=== PATIENT | male | born 1945 | race Caucasian/White ===

== ENCOUNTER 2024-12-16 09:29 | Inpatient (IN) | payer MEDICARE, OTHER, SELFPAY ==
[2024-12-12] VITALS (8 sets, daily range): BP systolic 115–158; BP diastolic 72–88; BMI 27.9
[2024-12-12 17:02] LABS: ALT (SGPT) 27 U/L (0-50); AST (SGOT) 58 U/L (17-59); Albumin 3.6 g/dl (3.5-5.0); Alkaline Phosphatase 110 U/L (38-126); Blood Urea Nitrogen 16 mg/dl (9-20); Calcium 8.6 mg/dl (8.4-10.2); Carbon Dioxide 24 mmol/L (22-30); Chloride 106 mmol/L (98-107); Glucose 95 mg/dl (70-99); Potassium 4.4 mmol/L (3.5-5.1); Sodium 135 mmol/L (135-145); Total Protein 7.6 g/dl (6.3-8.2); eGFR > 60.00
[2024-12-12 17:07] LABS: Hematocrit 33.9 % (39.0-52.0); Hemoglobin 11.3 g/dL (13.0-18.0); Mean Corp Hgb Conc. 33.3 g/dL (33.0-37.0); Mean Corpuscular Volume 100.3 fL (80.0-94.0); Platelet Count 124 10^3/uL (130-400); Red Cell Dist. Width 15.7 % (11.5-14.5)
[2024-12-12 17:28] LABS: Nucleated Red Blood Cells % 0 % (-)
--- NOTE | 2024-12-12 17:57 | ED.GENMED ---
History of Present Illness
General
Chief Complaint: Weakness
Source: patient
Exam Limitations: none
Time Seen by Provider: 12/12/24 17:56
History of Present Illness
History of Present Illness:
79-year-old male presents feeling unwell. He is having loose stools over the past week. He has the urge to have bowel movement and only drops come out. He denies significant abdominal pain. He is very fatigued. Took a COVID test at home which
was negative. He denies any blood in his stool. No vomiting. He was on a trip to [facility] and got home on the fifth of this month. He had been doing well for several days after he returned from the trip no recent antibiotics..
Phy Exam
Physical Exam
Physical Exam:
General: Well-appearing male no acute respiratory distress
HEENT: Normocephalic atraumatic
Heart: Regular rate and rhythm no murmurs
Lungs: Clear no wheeze
Course
Orders/Labs/Results
Orders:
Orders
12/12/24 16:31
Electrocardiogram (*1) Urgent
Reason for Study: Chest Pain
EKG- Treatment ONCE
12/12/24 16:35
Complete Blood Count/With Diff Urgent
Comprehensive Metabolic Panel Urgent
Lipase Urgent
Comment: ADD ON
12/12/24 18:11
Ova & Parasites Giardia/Crypto AG [Giardia/Cryptosporidium Ag] Urgent
TONY Source: Feces/Stool
Specimen Description:
STOOL [C difficile Antigen & Toxins] Urgent
TONY Source: Feces/Stool
Specimen Description:
Stool Culture Urgent
TONY Source: Feces/Stool
Specimen Description:
12/12/24 18:34
CT Abd/pelvis W Iv Cont Urgent
Comment:
Reason For Exam: diarrhea, loss of appetite
12/12/24 21:00
Add On- LAB Urgent
Tests Added?: lipase
Abnormal Lab Results
12/12/24
16:35
WBC 3.6 L 10^3/uL
(4.8-10.8)
RBC 3.38 L 10^6/uL
(4.70-6.10)
Hgb 11.3 L g/dL
(13.0-18.0)
Hct 33.9 L %
(39.0-52.0)
MCV 100.3 H fL
(80.0-94.0)
MCH 33.4 H pg
(27.0-31.0)
RDW 15.7 H %
(11.5-14.5)
Plt Count 124 L 10^3/uL
(130-400)
MPV 10.5 H fL
(7.4-10.4)
Abs Immat Gran (auto) 0.1 H 10^3/uL
(0-0.05)
Absolute Lymphs (auto) 1.0 L 10^3/uL
(1.2-3.4)
Immature Gran % 1.7 H %
(0-0.5)
Monocytes % 14.0 H %
(1.7-9.3)
Total Bilirubin 1.9 H mg/dl
(0.2-1.3)
12/12/24 16:35
12/12/24 16:35
Vital Signs
Initial and Last Documented VS:
Initial Vital Signs
Temp Pulse Resp BP Pulse Ox
98.1 F 70 16 140/83 97
12/12/24 16:26 12/12/24 16:26 12/12/24 16:26 12/12/24 16:26 12/12/24 16:26
Last Documented Vital Signs
Temp Pulse Resp BP Pulse Ox
98.1 F 70 16 140/83 97
12/12/24 16:26 12/12/24 16:26 12/12/24 16:26 12/12/24 16:26 12/12/24 17:57
*Pulse Oximetry
SaO2: 97
Oxygen Mode of Delivery: Room air
Patient hypoxic: no
*Critical Care Note
Total Time (30-74mins, 75-104mins- exclusive of procedures): Not Applicable
Update Note
Update Note:
Patient reexamined still appears nontoxic. Unable to provide a stool sample at this point yet. CT demonstrates moderate amount of new ascites with possible cirrhosis and colopathy versus colitis. Discussed findings with GI. They are recommending
further workup for new ascites with interventional radiology involvement and testing of the fluid. Stool cultures pending. Will hold off on antibiotics as discussed with GI.
ED Attending Note
-
Portions of this chart may have been created with voice recognition software.� Occasional wrong word or��sound alike� substitutions may have occurred due to the inherent limitations of voice recognition software.
Discharge Plan
Departure
Patient Disposition: Admit
Date of Disposition: 12/12/24
Time of Disposition: 21:23
Presentation/result/management discussed w/ accepting MD/DO: Hospitalist
Discharge Problem:
new ascites
Referrals:
Saurav Masters Jr., DO [Family Provider]
Interventions
Interventions:
*Risk Screen - Suicide Last Done: 12/12/24 16:26
*General Assessment Last Done: 12/12/24 18:19
*Neglect/Abuse Screening Last Done: 12/12/24 18:19
*ED- Fall Risk Assessment Last Done: 12/12/24 18:19
*ED COVID-19 Vaccine History Last Done: 12/12/24 18:19
ED- Cardiac Assessment Last Done: 12/12/24 18:19
ED- Neurological Assessment Last Done: 12/12/24 18:19
ED- Pulmonary Assessment Last Done: 12/12/24 18:19
Discharge Date and Time
Print Language: VATICAN CITIZEN
--- NOTE | 2024-12-12 20:20 | PTCARENOTE ---
Pt reported stool sample left in hat as instructed, however unable to obtain sample as pt had left toilet paper covering sample in hat. Reinforced teaching that nothing could go into hat for sample
[2024-12-12 21:31] LABS: Lipase 222 U/L (23-300)
--- NOTE | 2024-12-12 21:53 | HPS.HSE ---
Addendum entered and electronically signed by Johnathon Glasgow DO 12/12/24 22:58:
Patient seen and examined independently. Agree with findings and plan as set forth by DENISE Johns.
Patient is a 79y M with PMH significant for HTN, GERD and BPH who presents to ED complaining of diarrhea x 1 week. Patient reports 3-4 loose bowel movements per day in that time. Mild crampy abdominal pain prior to BM. No N/V. No fevers /
chills. No bloody or black stools. Patient returned from trip to [facility] in early November. No known sick contacts.
He admits to history of daily alcohol use until about 3 months ago. Now has 2-3 drinks on weekends.
Ass:
Diarrhea / Portal Colopathy
Cirrhosis with Ascites
Pancytopenia
Benign Hypertension
GERD
BPH
Anxiety / Depression
Plan:
Admit for further evaluation and treatment.
Cirrhosis with ascites and probable portal colopathy resulting in loose stools.
Check stool studies to rule out infectious etiology.
GI evaluation for additional recommendations.
IR eval for paracentesis / fluid analysis in the AM.
Check hepatitis serologies.
Patient reports prior diagnosis of 'fatty liver' as well as years of daily alcohol use.
Original Note:
Family Physician
-
Family Physician: Saurav Masters DO
Chief Complaint
-
persistent diarrhea
History of Present Illness
Patient is a 79-year-old male with past medical history hypertension, hyperlipidemia, depression, GERD and BPH who presented to [facility] ED for evaluation of persistent diarrhea for 1 week. Patient reports recent 2 week trip to [facility] for [employer]
trip, returning home on the . He states that approximately 10 days ago he started with watery diarrhea, with 2-3 episodes a day. After a few days he reports that it has become more soft/loose diarrhea and in small amounts. He decided to come for
evaluation since the symptoms have not resolved. Patient denies any fever, chills, cough, shortness of breath, chest pain, weight gain, increase in abdominal girth, or urinary changes.
Medical History
Past Medical History
Past Medical History: Reports Other
Additional Past Medical History:
hypertension
hyperlipidemia
depression
GERD
BPH
Past Surgical History: Reports Other
Additional Past Surgical History:
bilateral knee replacements
Social History
Tobacco: Other (smokes 10-12 cigars per year )
Alcohol: Other (was a daily drinker up to 3 months ago, now will drink 1-2 glasses of wine just on weekend nights.)
Drug: None
Personal:
Living: With Family
Employment: Retired
Family History
Family History: Other (Father: [place]; Sister: breast cancer )
Allergies / Home Medications
Allergies reflects when Allergies were last updated in [facility].
Home Medications with original date entered in [facility]
Allergy/Medication List:
Allergies
Allergy/AdvReac Type Severity Reaction Status Date / Time
No Known Allergies Allergy Unverified 12/12/24 16:26
Home Medications
amlodipine 5 mg-benazepril 40 mg capsule 1 cap PO DAILY 12/12/24
aspirin 81 mg tablet,delayed release 81 mg PO DAILY 12/12/24
dutasteride 0.5 mg capsule 0.5 mg PO DAILY 12/12/24
escitalopram oxalate 20 mg tablet 20 mg PO DAILY 12/12/24
fenofibrate 160 mg tablet 160 mg PO DAILY 12/12/24
glucosamine sulf dipot chlr,msm,chond 550 mg-C 30 mg-karmen 1 mg capsule (Glucosamine Chondroitin) 1 cap PO BID 12/12/24
omeprazole 40 mg capsule,delayed release 40 mg PO DAILY 12/12/24
simvastatin 40 mg tablet 40 mg PO HS 12/12/24
therapeutic multivitamin 1 tab PO DAILY 12/12/24
turmeric 400 mg capsule 400 mg PO DAILY 12/12/24
Review of Systems
-
History Source: Patient
Constitutional: Reports No Symptoms
EENT: Reports No Symptoms
Respiratory: Reports No Symptoms
Cardiac: Reports No Symptoms
Abdomen/GI: Reports Diarrhea (for 1 week )
: Reports No Symptoms
Musculoskeletal: Reports No Symptoms
Skin: Reports No Symptoms
Neurological: Reports No Symptoms
Endocrine: Reports No Symptoms
Hematologic/Lymphatic: Reports No Symptoms
Psych: Reports No Symptoms
Physical Exam
Vital Signs
Vital Signs
Temp Pulse Resp BP Pulse Ox
98.1 F 68 19 141/83 95
12/12/24 16:26 12/12/24 21:15 12/12/24 21:15 12/12/24 21:00 12/12/24 21:15
Physical Exam
General: Well Developed, Well Nourished, No Apparent Distress and Obese
HEENT: NormoCephalic, Moist mucous membranes and Atraumatic
Respiratory: Clear and Non Labored Respirations
Cardiac: S1/S2 and Regular Rhythm
GI: Soft, Non Tender, Non Distended and Normal Bowel Sounds
Rectal: Deferred by Provider
Genito-urinary: Deferred by me
Musculoskeletal: No Clubbing, No Cyanosis and No Edema
Skin: Warm and IV/Catheter Site
Neuro: Awake, AO x 3 and Nonfocal/grossly intact
Psych: Calm and Intact Judgment/Insight
Laboratory Results
-
12/12/24 16:35
12/12/24 16:35
Laboratory Results
Total Bilirubin 1.9 mg/dl (0.2-1.3) H 12/12/24 16:35
AST 58 U/L (17-59) 12/12/24 16:35
ALT 27 U/L (0-50) 12/12/24 16:35
Alkaline Phosphatase 110 U/L (38-126) 12/12/24 16:35
Lipase 222 U/L (23-300) 12/12/24 16:35
Data Reviewed
-
CT Scan: Report Reviewed by me (Abd/Pel: 1. Hepatic cirrhosis and splenomegaly suggesting portal hypertension. 2. Moderate volume abdominopelvic ascites. 3. Findings suggesting portal colopathy (versus acute uncomplicated colitis). Otherwise no
convincing acute process in the abdomen or pelvis.)
Medical Tests (Nuc Med, Echo, EKG etc): Report Reviewed by me (EKG: NORMAL SINUS RHYTHM NONSPECIFIC ST ABNORMALITY)
Lab Data: Labs Reviewed by me (Tot Bili 1.9)
Impression/Plan
-
IMPRESSION/PLAN:
#persistent diarrhea
#ascites
Tot Bili 1.9
stool studies: pending
Abd/Pel: 1. Hepatic cirrhosis and splenomegaly suggesting portal hypertension.
2. Moderate volume abdominopelvic ascites.
3. Findings suggesting portal colopathy (versus acute uncomplicated colitis). Otherwise no convincing acute process in the abdomen or pelvis.
EKG: NORMAL SINUS RHYTHM
NONSPECIFIC ST ABNORMALITY
- Admit to med/surg
- Consult GI
- Consult IR
- h epatitis panel
- supportive care
#hypertension
- continue amlodipine-benazepril
#hyperlipidemia
#hypertriglyceridemia
- continue aspirin, fenofibrate and simvastatin
#depression
- continue escitalopram
#GERD
- continue omeprazole
#BPH
- continue dutasteride
Code status: full code
DVT prophylaxis: SCDs
[2024-12-13] VITALS (15 sets, daily range): BP systolic 60–151; BP diastolic 69–89; BMI 27.9
[2024-12-13 04:42] LABS: Hematocrit 30.1 % (39.0-52.0); Hemoglobin 10.3 g/dL (13.0-18.0); Mean Corp Hgb Conc. 34.2 g/dL (33.0-37.0); Mean Corpuscular Volume 100.0 fL (80.0-94.0); Platelet Count 104 10^3/uL (130-400); Red Cell Dist. Width 15.9 % (11.5-14.5)
[2024-12-13 04:53] LABS: Blood Urea Nitrogen 16 mg/dl (9-20); Calcium 8.4 mg/dl (8.4-10.2); Carbon Dioxide 22 mmol/L (22-30); Chloride 111 mmol/L (98-107); Estimated Creatinine Clearance 75 ml/min; Glucose 128 mg/dl (70-99); Potassium 3.6 mmol/L (3.5-5.1); Sodium 138 mmol/L (135-145); eGFR > 60.00
[2024-12-13 05:32] LABS: Hepatitis B Surface Antigen Negative (Negative)
[2024-12-13 05:50] LABS: Hepatitis C Antibody Negative (Negative)
--- NOTE | 2024-12-13 06:44 | CON.GI ---
Addendum entered and electronically signed by Lion Hilliard DO 12/13/24 15:04:
I saw and examined the patient.
The INTEGRATION DEVELOPER's note was reviewed and I agree with the note.
Comment: Mr. Rajan is a 79 y.o male with a past medical history of HTN, HLD, GERD, anxiety/depression and recent travel to [place] who presented to the ED with acute, non-bloody, watery diarrhea over the past 2-3 weeks and found to have CT imaging
demonstrating hepatic cirrhosis and ascites for which GI has been consulted. Patient denies any known liver disease or prior history of cirrhosis in the past. Denies any family history of liver disease. He does note significant EtOH use in the past
several years ago, primarily drank 1-2 glasses of wine on a daily basis and continues to drink EtOH about 4-5 drinks per week. Found to have labs demonstrating synthetic dysfunction along with pancytopenia and thrombocytopenia. MELD labs
corresponding to a MELD 10. CT imaging demonstrating hepatic cirrhosis and splenomegaly suggesting portal HTN along with moderate abdominopelvic ascites along with portal colopathy (versus acute uncomplicated colitis). Otherwise, no other acute
process. S/p IR-guided paracentesis on 12/13 with (-) 1.3 L removed and (-) for SBP (27 PMNs) along with High SAAG > 1.1, low protein further consistent with portal HTN secondary to cirrhosis. For now, would still obtain infectious stool studies with
stool culture, stool ova and parasites along with C Diff. Doubt his diarrhea related to portal colopathy as often found incidentally on imaging and often an asymptomatic finding as related to passive-congestion. Would send full serologic w/u to r/o
chronic liver disease as well but seems most consistent with underlying EtOH. Would benefit from an eventual EGD and colonoscopy as well but would consider deferring to outpatient setting. Favor starting low dose diuretics given his ascites with
close monitoring of his renal function along. Would also ensure his peritoneal fluid has also been sent for cytology. Would continue to trend serial MELD 3.0 labs while inpatient along with minimizing opioids/benzos as not to precipitate HE.
Discussed strict abstinence of alcohol and will need close follow-up with Hepatology as outpatient. See rest of care as outlined below.
GI will continue to follow while inpatient. Please call with any questions or concerns.
Original Note:
Consultation
-
Date/Time Consultation Requested: 12/12/24 3051
Date/Time Consultation Performed: 12/13/24 2030
Requesting Provider: DENISE Johns
Performing Provider: DENISE Berumen, Lion Hilliard DO
Reason for Consultation: ascites
Medical History
Chief Complaint / HPI
Chief Complaint: diarrhea
History of Present Illness:
Pt is a 79yo with hx GERD, HTN, hyperlipidemia, anxiety/depression, BPH with recent trip to [facility] with return in early November. He now presents with onset of watery stool for last few weeks. On admission noted with WBC 3.6, hbg 11,3 platelets 124,
bili 1.9 wih otherwise stable chemistry. CT on admission with concern for cirrhosis with splenomegaly, moderate ascites and portocolopathy.
In review with patient he denies hx hepatitis, known liver disease and drinks ETOH about 4-5 drinks per week. He denies hx lab abnormalities with last labs in May. He denies dysphagia, GERD, nausea, vomiting, abdominal pain, constipation
or rectal bleeding. No NSAID or AC use.
Past Medical History
Past Medical History: GERD, HTN, Hypercholesterolemia, Psychiatric (anxiety/depression) and Other (BPH)
Past Surgical History: Orthopedic (b/l TKR)
Social History
Tobacco: Non-Smoker
Alcohol: Occasional (4-5 drinks per week)
Drug: None
Personal:
Living: With Family
Employment: Retired
Family History
Family History: Other (no family hx GI issues )
Allergies / Home Medications
Allergy/AdvReac Type Severity Reaction Status Date / Time
No Known Allergies Allergy Unverified 12/12/24 16:26
�Medication �Instructions �Recorded
amlodipine 5 mg-benazepril 40 mg 1 cap PO DAILY 12/12/24
capsule
aspirin 81 mg tablet,delayed 81 mg PO DAILY 12/12/24
release
dutasteride 0.5 mg capsule 0.5 mg PO DAILY 12/12/24
escitalopram oxalate 20 mg tablet 20 mg PO DAILY 12/12/24
fenofibrate 160 mg tablet 160 mg PO DAILY 12/12/24
glucosamine sulf dipot 1 cap PO BID 12/12/24
chlr,msm,chond 550 mg-C 30 mg-karmen
1 mg capsule (Glucosamine
Chondroitin)
omeprazole 40 mg capsule,delayed 40 mg PO DAILY 12/12/24
release
simvastatin 40 mg tablet 40 mg PO HS 12/12/24
therapeutic multivitamin 1 tab PO DAILY 12/12/24
turmeric 400 mg capsule 400 mg PO DAILY 12/12/24
Review of Systems
-
History Source: Patient
Constitutional: Reports No Symptoms
EENT: Reports No Symptoms
Respiratory: Reports No Symptoms
Cardiac: Reports No Symptoms
Abdomen/GI: Reports Diarrhea
: Reports No Symptoms
Musculoskeletal: Reports No Symptoms
Skin: Reports No Symptoms
Neurological: Reports Weakness
Endocrine: Reports No Symptoms
Hematologic/Lymphatic: Reports No Symptoms
Vital Signs
Temp Pulse Resp BP Pulse Ox
98.1 F 77 20 139/85 93
12/12/24 23:51 12/13/24 04:25 12/13/24 04:25 12/13/24 04:25 12/13/24 04:25
Physical Exam
Exam
General: Well Developed, Well Nourished and No Apparent Distress
HEENT: Normocephalic and Anicteric
Respiratory: Clear
Cardiac: Regular Rhythm
GI: Soft, Non Tender and Non Distended
Musculoskeletal: No Clubbing and No Cyanosis
Skin: Warm and Dry
Neuro: Awake, Alert and AO x 3
Psych: Calm
Results
WBC 3.6 10^3/uL (4.8-10.8) L 12/13/24 04:30
Hgb 10.3 g/dL (13.0-18.0) L 12/13/24 04:30
Hct 30.1 % (39.0-52.0) L 12/13/24 04:30
MCV 100.0 fL (80.0-94.0) H 12/13/24 04:30
Plt Count 104 10^3/uL (130-400) L 12/13/24 04:30
Absolute Neuts (auto) 1.9 10^3/uL (1.4-6.5) 12/12/24 16:35
Sodium 138 mmol/L (135-145) 12/13/24 04:30
Potassium 3.6 mmol/L (3.5-5.1) 12/13/24 04:30
Chloride 111 mmol/L (98-107) H 12/13/24 04:30
Carbon Dioxide 22 mmol/L (22-30) 12/13/24 04:30
BUN 16 mg/dl (9-20) 12/13/24 04:30
Creatinine 0.8 mg/dL (0.7-1.3) 12/13/24 04:30
Calcium 8.4 mg/dl (8.4-10.2) 12/13/24 04:30
Total Bilirubin 1.9 mg/dl (0.2-1.3) H 12/12/24 16:35
AST 58 U/L (17-59) 12/12/24 16:35
ALT 27 U/L (0-50) 12/12/24 16:35
Alkaline Phosphatase 110 U/L (38-126) 12/12/24 16:35
Lipase 222 U/L (23-300) 12/12/24 16:35
Hepatitis A IgM Ab Negative (Negative) 12/13/24 04:30
Hep Bs Antibody Positive 12/13/24 04:30
Hep B Core IgM Ab Negative (Negative) 07/25/25 04:30
Hepatitis C Antibody Negative (Negative) 12/13/24 04:30
Diagnostic Image Results:
12/12/24 CT Abd/pelvis W Iv Cont
1. Hepatic cirrhosis and splenomegaly suggesting portal hypertension.
2. Moderate volume abdominopelvic ascites.
3. Findings suggesting portal colopathy (versus acute uncomplicated colitis). Otherwise no convincing acute process in the abdomen or pelvis.
Prior GI Procedures:
EGD: ? [facility] recalls normal
Colonoscopy: [facility] 7-8 years ago recall normal
Assessment / Plan
-
Pt is a 79yo with hx GERD, HTN, hyperlipidemia, anxiety/depression, BPH with recent trip to [facility] with return in early November. He now presents with onset of watery stool for last few weeks. On admission noted with WBC 3.6, hbg 11,3 platelets 124,
bili 1.9 wih otherwise stable chemistry. CT on admission with concern for cirrhosis with splenomegaly, moderate ascites and portocolopathy.
-diarrhea
-new onset ascites
-CT concern for hepatic cirrhosis with splenomegaly and portocolopathy
-thrombocytopenia
-mild macrocytic anemia
-social ETOH use
other med problems:
-GERD
-HTN
-hyperlipidemia
-anxiety/depression
-BPH
PLAN:
etiology of diarrhea related to infectious process with recent travel, colopathy vs other
no prior GI bleeding, HE or Cirrhosis known in past
agree with stool studies
with new ascites agree with para and fluid analysis to rule out SBP, calculate SAAG for origin, and cytology
pending labs may need low dose diuretics
hepatitis with prior B immunity otherwise neg , add MIKE, AMA and iron studies
will need OP follow up for further serology testing and work up
eventual EGD for variceal screening
add INR to calculate meld
add low lactose to diet with diarrhea
ETOH abstience
will follow
-
-
Thank you for consultation and allowing me to participate in the patient's care. Please call the configuration management consultant GI physician during the after hours with any questions or concerns.
[2024-12-13] MEDS: PROSCAR 5 MG PO (08:50)
[2024-12-13] MEDS: ASPIR LOW (ENTERIC COATED) 81 MG PO (08:50)
[2024-12-13] MEDS: NORVASC 5 MG PO (08:50)
[2024-12-13] MEDS: PROTONIX 40 MG PO (08:50)
[2024-12-13] MEDS: LEXAPRO 20 MG PO (08:50)
[2024-12-13 09:03] LABS: INR 1.32; PT 16.7 Sec (11.4-14.6)
[2024-12-13 09:35] LABS: Folate 10.3 ng/ml (2.76-20); Vitamin B12 389 pg/ml (239-931)
[2024-12-13] MEDS: TRICOR 145 MG PO (10:08)
[2024-12-13 10:28] LABS: Body Fluid Second Tech EM
--- NOTE | 2024-12-13 11:08 | W.PN.HOSP.TC ---
Today's Communication/Plan
-
See PN
Assessment / Plan
Assessment / Plan
79yo M with PMHX of HLD, BPH, HTN, CAD, GERD came with concerns for weakness and appetite loss over past 3 weeks after his return from [facility] with abdominal distension. Found new moderate ascites s/p paracenthesis on 12/13/24 with transudate with low
protein content - most likely 2/2 portal HTN due to liver disease. CT showed cirrhotic liver morphology with portal HTN resulting in splenomegally and portal colopathy. Did not meet criteria for SBP. ALso developed loose multiple stools over past 3
weeks. Patient previously used to have wine nightly, but denies abuse
A/P:
#Malaise, weakness
Most likely 2/2 systemic disease
#Diarrhea
can be 2/2 portal colopathy
C.diff neg
follow stool Cx
#Liver cirrhosis with ascites
Check ferritin, ceruloplasmin, IGG4, MIKE, AMA, Anti-Smooth muscle Ab, lead level and follow with GI
Acute Hepatitis neg, patient immunized to HepB
Advised absolute alcohol abstinence, avoid Tylenol
Eventual EGD for variceal screening, recommend colonoscopy due to stool consistency change, diuretics.
Lactulose PRN to ensure daily BM
#Pancytopenia
Thiamine, folate WNL
Hematology consult
#GERD
#Essential HTN
#HLD
#CAD stable
#BPH
cont home meds
DVT ppx SCDs
Full code
I have spent at least 51min reviewing chart, test results, communication with consultants, family and providing direct patient care
Anticipated Discharge: 24 - 48 hours
Subjective/Interval History
-
Date of Service: December 13, 2024
Objective Data
-
Labs:
Laboratory Results
12/13/24 12/13/24
04:30 08:47
WBC 3.6 L
Hgb 10.3 L
Hct 30.1 L
Plt Count 104 L
PT 16.7 H
INR 1.32
Sodium 138
Potassium 3.6
Chloride 111 H
Carbon Dioxide 22
BUN 16
Creatinine 0.8
Glucose 128 H
Calcium 8.4
Vital Signs:
Vital Signs
Temp Pulse Resp BP Pulse Ox
98.1 F 62 14 141/82 94
12/13/24 10:56 12/13/24 09:58 12/13/24 09:58 12/13/24 09:58 12/13/24 09:49
Review of Systems
-
History Source: Patient
All other systems: Reviewed and negative
Physical Exam
-
General: No Apparent Distress
HEENT: Normocephalic
Respiratory: Clear to Auscultation
Cardiac: Regular Rhythm
GI: Soft, Nontender, Normal Bowel Sounds and Distended
Musculoskeletal: No Clubbing, No Cyanosis and No Edema
Neuro: Awake, Alert, Oriented and AO x 3
Psych: Calm
--- NOTE | 2024-12-13 11:14 | CM ---
Patient seen at bedside in ED with patient present. Patient and stated that they live in a 2 story home with no DME at home or past needs for VN. Patient PCP is Dr. Masters and they use the [facility] in [place]. 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 Patient and reviewed OBS/BOX form with CM. Patient stated that she did not feel the status was fair and wanted it to be changed. CM reviewed process and patient did not feel comfortable completing the OBS/BOX form. CM documented
this on the form and provided the original form to the patient and , CM requested air conditioning unit tester to scan OBS/BOX form in to record. CM will continue to follow for discharge planning needs
Plan; home with ; watch for VN needs.
[2024-12-13 14:25] LABS: ALT (SGPT) 25 U/L (0-50); AST (SGOT) 52 U/L (17-59); Albumin 3.4 g/dl (3.5-5.0); Alkaline Phosphatase 121 U/L (38-126); Total Protein 7.0 g/dl (6.3-8.2)
[2024-12-13 15:22] LABS: Ferritin 206.0 ng/ml (17.9-464.0)
--- NOTE | 2024-12-13 15:26 | CON.ONC ---
Consultation
-
Date Consultation Requested: 12/13/24
Date Consultation Performed: 12/13/24
Requesting Provider: kody del castillo
Performing Provider: evie serrano
Reason for Consultation: pancytopenia
Impression
Impression
- Mild thormbocytopenia
- mild macrocytic anemia
- mild leukopenia
portal HTN with splenomegaly
Cirrhosis, decompensated
Plan
Plan
- pt presenting with newly diagnosed cirrhosis with evidence of portal HTN with ascites, splenomegaly. Pt with risk factors for fatty liver, chronic moderate ETOH use.
- no prior labs for comparison. CBC with mild leukopenia, anemia, thrombocytopenia. B12, folate normal. TSH pending.
- suspect cytopenias due to splenic sequestration. low suspicion for primary bone marrow process. denies melena, BRBPR. iron studies pending. If evidence of iron deficiency recommend stool hemoccult, EGD to assess for varices. Otherwise
EGD/colonoscopy outpt per GI recs to document varices.
- I do not feel BMbx is warranted with current values and other etiology present.
- monitor CBC daily.
Patient History
History of Present Illness
Patient is a 79-year-old male with past medical history hypertension, hyperlipidemia, depression, GERD and BPH who presented to [facility] ED for evaluation of change in bowels with constipation then intermittent loose stools. He also noted increased
abdominal distention. CT imaging showed hepatic cirrhosis and ascites for which GI has been consulted. Patient denies any known liver disease however notes he has been told LFTs slightly high in past but were stable so no further work-up
pursued. Denies any family history of liver disease. He does note significant EtOH use in the past several years ago, primarily drank 1-2 glasses of wine on a daily basis and continues to drink EtOH about 4-5 drinks per week. Found to have labs
demonstrating synthetic dysfunction along with pancytopenia with WBC 3.6, hgb 11.3, plts 124K. Ct also showed splenomegaly measuring 17.5 cm suggesting portal HTN along with moderate abdominopelvic ascites along with portal colopathy (versus acute
uncomplicated colitis). Otherwise, no other acute process. S/p IR-guided paracentesis on 12/13 with (-) 1.3 L removed and (-) for SBP (27 PMNs) along with High SAAG > 1.1, low protein further consistent with portal HTN secondary to cirrhosis.
Patient Medication
�Medication �Instructions �Recorded �Confirmed �Last Taken �Type
amlodipine 5 mg-benazepril 40 mg 1 cap PO DAILY Blood Pressure 12/12/24 12/12/24 12/12/24 History
capsule
aspirin 81 mg tablet,delayed 81 mg PO DAILY Blood Clot 12/12/24 12/12/24 12/12/24 History
release Prevention/Tx
dutasteride 0.5 mg capsule 0.5 mg PO DAILY prostate issues 12/12/24 12/12/24 12/12/24 History
escitalopram oxalate 20 mg tablet 20 mg PO DAILY Mental Health 12/12/24 12/12/24 12/12/24 History
fenofibrate 160 mg tablet 160 mg PO DAILY High Cholesterol 12/12/24 12/12/24 12/12/24 History
glucosamine sulf dipot 1 cap PO BID Supplement 12/12/24 12/12/24 12/12/24 History
chlr,msm,chond 550 mg-C 30 mg-karmen
1 mg capsule (Glucosamine
Chondroitin)
omeprazole 40 mg capsule,delayed 40 mg PO DAILY Gastrointestinal 12/12/24 12/12/24 12/12/24 History
release Issue
simvastatin 40 mg tablet 40 mg PO HS High Cholesterol 12/12/24 12/12/24 12/11/24 History
therapeutic multivitamin 1 tab PO DAILY Supplement 12/12/24 12/12/24 12/12/24 History
turmeric 400 mg capsule 400 mg PO DAILY Supplement 12/12/24 12/12/24 12/12/24 History
Active Medications
Generic Name Dose Route Start Last Admin
Trade Name Freq PRN Reason Stop Dose Admin
Amlodipine Besylate 5 mg 12/13/24 08:00 12/13/24 08:50
Amlodipine 5 Mg Tablet PO 01/10/25 07:59 5 mg
DAILY SIRIA Administration
Aspirin 81 mg 12/13/24 08:00 12/13/24 08:50
Aspirin 81 Mg (Enteric Coated) Tablet PO 01/10/25 07:59 81 mg
DAILY SIRIA Administration
Atorvastatin Calcium 20 mg 12/13/24 22:00
Atorvastatin (Lipitor) 20 Mg Tablet PO 01/10/25 21:59
HS SIRIA
Escitalopram Oxalate 20 mg 12/13/24 08:00 12/13/24 08:50
Escitalopram 20 Mg Tablet PO 01/10/25 07:59 20 mg
DAILY SIRIA Administration
Fenofibrate 145 mg 12/13/24 08:00 12/13/24 10:08
Fenofibrate 145 Mg Tablet PO 01/10/25 07:59 145 mg
DAILY SIRIA Administration
Finasteride 5 mg 12/13/24 08:00 12/13/24 08:50
Finasteride 5 Mg Tablet PO 01/10/25 07:59 5 mg
DAILY SIRIA Administration
Pantoprazole Sodium 40 mg 12/13/24 08:00 12/13/24 08:50
Pantoprazole 40 Mg Delayed Release Tablet PO 01/10/25 07:59 40 mg
DAILY SIRIA Administration
Sodium Chloride 0 flush 12/12/24 23:00
Sodium Chloride 0.9% (Flush) Syringe IV 01/09/25 22:59
PER PROTOCOL SIRIA
Review of Systems
-
History Source: Patient
Constitutional: Reports Fatigue; Denies Fever or Weight Loss
Respiratory: Denies Cough or Trouble Breathing
Cardiac: Denies Chest Pain
GI: Reports Diarrhea, Constipated and Bloated; Denies Abdominal Pain, Nausea, Bloody Stools, Black Stools, Anorexia, Hemetemesis or Indigestion
Musculoskeletal: Denies Joint Pain
Neuro: Denies Dizzy or Headache
Physical Exam
-
General: Well Developed, Well Nourished and No Apparent Distress
HEENT: Negative Jaundice
Cardiology: Normal Sinus Rhythm
Pulmonary: Clear
GI: Soft, Normal Bowel Sounds and Distended
Musculoskeletal: No Cyanosis and No Edema
Extremities: Negative Edema
Neurology: Non Focal and No Lateralizing Symptoms
Hematologic / Lymphatic: No Lymphadenopathy and No Petechiae
Labs
Lab Results
WBC 3.6 10^3/uL (4.8-10.8) L 12/13/24 04:30
RBC 3.01 10^6/uL (4.70-6.10) L 12/13/24 04:30
Hgb 10.3 g/dL (13.0-18.0) L 12/13/24 04:30
Hct 30.1 % (39.0-52.0) L 12/13/24 04:30
MCV 100.0 fL (80.0-94.0) H 12/13/24 04:30
MCH 34.2 pg (27.0-31.0) H 12/13/24 04:30
MCHC 34.2 g/dL (33.0-37.0) 12/13/24 04:30
RDW 15.9 % (11.5-14.5) H 12/13/24 04:30
Plt Count 104 10^3/uL (130-400) L 12/13/24 04:30
MPV 10.2 fL (7.4-10.4) 12/13/24 04:30
Abs Immat Gran (auto) 0.1 10^3/uL (0-0.05) H 12/12/24 16:35
Absolute Neuts (auto) 1.9 10^3/uL (1.4-6.5) 12/12/24 16:35
Absolute Lymphs (auto) 1.0 10^3/uL (1.2-3.4) L 12/12/24 16:35
Absolute Monos (auto) 0.5 10^3/uL (0.1-0.6) 12/12/24 16:35
Absolute Eos (auto) 0.1 10^3/uL (0-0.7) 12/12/24 16:35
Absolute Basos (auto) 0.1 10^3/uL (0-0.2) 12/12/24 16:35
Immature Gran % 1.7 % (0-0.5) H 12/12/24 16:35
Neutrophils % 53.8 % (42.2-75.2) 12/12/24 16:35
Lymphocytes % 26.6 % (20.5-51.1) 12/12/24 16:35
Monocytes % 14.0 % (1.7-9.3) H 12/12/24 16:35
Eosinophils % 2.5 % (0-6) 12/12/24 16:35
Basophils % 1.4 % (0-2) 12/12/24 16:35
Creatinine 0.8 mg/dL (0.7-1.3) 12/13/24 04:30
Vital Signs
Vital Signs
Temp Pulse Resp BP Pulse Ox
98.1 F 77 22 124/73 96
12/13/24 10:56 12/13/24 13:30 12/13/24 13:30 12/13/24 13:00 12/13/24 13:55
[2024-12-13] MEDS: LIPITOR 20 MG PO (20:18)
[2024-12-14 06:00] VITALS: BMI 25.4
--- NOTE | 2024-12-14 06:17 | W.PN.GI.CBS2 ---
Today's Communication / Plan
-
Await rest of stool cultures, previous looser stools now resolved. Start low-dose diuretics along with obtaining Abdominal US with Dopplers to r/o HCC and PVT. Will obtain AFP as well along awaiting full serologic w/u of chronic liver disease. No
plans for EGD/Colon while inpatient, can be deferred to outpatient setting. See rest of care as outlined below. GI will continue to follow.
Assessment / Plan
-
#Decompensated Cirrhosis (likely 2/2 EtOH)
#High SAAG, low protein Ascites
#Colonic Wall Thickening c/f #Portal Colopathy
#Previous Non-bloody, Watery Diarrhea- Resolved
#Pancytopenia #Macrocytic Anemia
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
Mr. Rajan is a 79 y.o male with a past medical history of HTN, HLD, GERD, anxiety/depression and recent travel to [facility] who presented to the ED with acute, non-bloody, watery diarrhea over the past 2-3 weeks and found to have CT imaging
demonstrating hepatic cirrhosis and ascites for which GI has been consulted. Patient denies any known liver disease or prior history of cirrhosis in the past. Denies any family history of liver disease. He does note significant EtOH use in the past
several years ago, primarily drank 1-2 glasses of wine on a daily basis and continues to drink EtOH about 4-5 drinks per week. Found to have labs demonstrating synthetic dysfunction along with pancytopenia and thrombocytopenia. MELD labs
corresponding to a MELD 10. CT imaging demonstrating hepatic cirrhosis and splenomegaly suggesting portal HTN along with moderate abdominopelvic ascites along with portal colopathy (versus acute uncomplicated colitis). Otherwise, no other acute
process. S/p IR-guided paracentesis on 12/13 with (-) 1.3 L removed and (-) for SBP (27 PMNs) along with High SAAG > 1.1, low protein further consistent with portal HTN secondary to cirrhosis. For now, would still obtain infectious stool studies with
stool culture, stool ova and parasites along with C Diff. Doubt his diarrhea related to portal colopathy as often found incidentally on imaging and often an asymptomatic finding as related to passive-congestion. Would send full serologic w/u to r/o
chronic liver disease as well but seems most consistent with underlying EtOH. Would benefit from an eventual EGD and colonoscopy as well but would consider deferring to outpatient setting.
- S/p IR-guided paracentesis on 12/13 with (-) 1.3 L removed and (-) for SBP (27 PMNs) along with High SAAG > 1.1, low protein further consistent with portal HTN
- Stool studies: (-) C Diff, (-) Cryptosporidium/Giardia, pending stool culture and peritoneal fluid culture
-
Recommendations:
- Continue diet as tolerated
- Trend daily MELD labs- CMP, INR and CBC
- Hepatitis serologies (-), (+) HBsAb c/w immunity to HBV ; serologic liver w/u sent and pending
- Start low dose diuretics with lasix 20 mg and spirnolactone 50 mg once daily for his ascites
- Await peritoneal culture and cytology, previously (-) SBP as well as stool culture
- Favor monitoring for 24 hrs for close monitoring of renal function and can be uptitrated as an outpatient
- Will obtain an Abdominal US along with Dopplers to ensure no PVT given his ascites although CT with grossly patent vasculature
- No plans for a colonoscopy at this time given his resolved looser stools
- Anemia w/u without evidence of NEVIN with normal ferritin 198 and iron sat 23%
- Favor pursuing an eventual EGD and Colonoscopy in outpatient setting for both EV screening and CRC screening as without any GI bleeding
- No evidence of HE, would continue to monitor off lactulose or rifaximin
- Will need ongoing HCC surveillance with US every 6 months, will obtain AFP
- Hematology consulted, appreciate recs regarding his pancytopenia
- Advised strict EtOH cessation as outpatient
- Ultimately, discussed close follow-up with both GI along with Hepatology as well for outpatient. Will have patient f/u with Dr. Gibbs
- Rest of care as per primary team
GI will continue to follow. Please call with any questions or concerns.
Subjective
Subjective
Date of Service: December 14, 2024
- S/p IR-guided paracentesis on 12/13 with (-) 1.3 L removed and (-) for SBP (27 PMNs) along with High SAAG > 1.1, low protein further consistent with portal HTN
- Stool studies: (-) C Diff, (-) Cryptosporidium/Giardia, pending stool culture and peritoneal fluid culture
- Hepatitis serologies (-), (+) HBsAb ; serologic liver w/u sent and pending
- Otherwise, no acute events overnight and pending AM labs
Feeling better this AM, denies any further diarrhea or looser stools. No recent BM last evening or this AM. No other abdominal pain, nausea/vomiting or other discomfort. Denies any other fevers/chills or other constitutional symptoms.
Objective
Data Reviewed
Laboratory Data:
Laboratory Results
12/13/24 04:30
12/13/24 04:30
Laboratory Results
PT 16.7 Sec (11.4-14.6) H 12/13/24 08:47
INR 1.32 12/13/24 08:47
Total Bilirubin 1.2 mg/dl (0.2-1.3) 12/13/24 04:30
AST 52 U/L (17-59) 12/13/24 04:30
ALT 25 U/L (0-50) 12/13/24 04:30
Alkaline Phosphatase 121 U/L (38-126) 12/13/24 04:30
Lipase 222 U/L (23-300) 12/12/24 16:35
Vital Signs and I&O:
Vital Signs
Temp Pulse Resp BP Pulse Ox
98.3 F 77 20 126/69 93
12/13/24 23:15 12/13/24 23:15 12/13/24 23:15 12/13/24 23:15 07/25/25 23:15
Physical Exam
Physical Exam
HEENT: Anicteric and Moist mucous membranes
Pulmonary: Other (Normal WOB on room air)
GI: Soft, Distended (Mildly distended), Non Tender and Other (No appreciable ascites or fluid wave)
Extremities: No Edema
Neuro: Non Focal and Other (No asterixis)
[2024-12-14 06:55] LABS: Iron 65 ug/dl (49-181)
[2024-12-14 07:05] LABS: Total Iron Binding Capacity 280 ug/dl (261-462)
[2024-12-14 07:30] VITALS: BP 130/81
[2024-12-14 07:32] LABS: Ferritin 198.0 ng/ml (17.9-464.0)
--- NOTE | 2024-12-14 09:30 | PTCARENOTE ---
Patient's spouse and daughter are in patient's room. Spouse is asking for an update. The patient, spouse and daughter were updated with the plan of care. The spouse had concerns regarding the doctors appointments she will need to make at discharge.
This RN explained multiple times to spouse and daughter that physician name, address, phone number and when to follow up will be listed on the discharge instructions. While RN was in patient room the daughter was calling the patients PCP to schedule
a colonoscopy and lab work per instructions. RN interrupted phone call and expressed to daughter that no physician had recommended those tests as of yet. daughter replied, 'Who can we talk to to expedite these discharge instructions.' Family was
made aware discharge instructions will be available on day of discharge. The daughter rolled her eyes at me. RN explained that GI doctor has not rounded yet this am. Daughter becoming angry and states, 'He was already here this morning!' I explained
for the 4th time that the hospitalist was here. She again said, 'No, it was the regional truck driver.' RN explained that was the hospitalist. The daughter then started arguing with her mother at the bedside. RN excused yourself.
[2024-12-14] MEDS: ASPIR LOW (ENTERIC COATED) 81 MG PO (09:34)
[2024-12-14] MEDS: PROTONIX 40 MG PO (09:34)
[2024-12-14] MEDS: NORVASC 5 MG PO (09:34)
[2024-12-14] MEDS: LEXAPRO 20 MG PO (09:34)
[2024-12-14] MEDS: PROSCAR 5 MG PO (09:37)
[2024-12-14 10:12] LABS: Hematocrit 32.3 % (39.0-52.0); Hemoglobin 10.8 g/dL (13.0-18.0); Mean Corp Hgb Conc. 33.4 g/dL (33.0-37.0); Mean Corpuscular Volume 101.9 fL (80.0-94.0); Nucleated Red Blood Cells % 0 % (-); Platelet Count 118 10^3/uL (130-400); Red Cell Dist. Width 15.9 % (11.5-14.5)
--- NOTE | 2024-12-14 10:58 | W.PN.HOSP.TC ---
Today's Communication/Plan
-
pendign stool Cx
Abd US doppler
recheck BMP in AM with new diuretic, possible d/c in AM
Assessment / Plan
Assessment / Plan
79yo M with PMHX of HLD, BPH, HTN, CAD, GERD came with concerns for weakness and appetite loss over past 3 weeks after his return from [facility] with abdominal distension. Found new moderate ascites s/p paracentesis on 12/13/24 with transudate with low
protein content - most likely 2/2 portal HTN due to liver disease. CT showed cirrhotic liver morphology with portal HTN resulting in splenomegaly and portal colopathy. Did not meet criteria for SBP. ALso developed loose multiple stools over past 3
weeks. Patient previously used to have wine nightly, but denies abuse. Pending final stool Cx. Will need f/u with case packer Dr. Gibbs. BMP and CBC in 1 week upon d/c as pancytopenia and new diuretics on discharge. [employer]: cytopenia 2/2
splenic equestration
A/P:
#Malaise, weakness
Most likely 2/2 systemic disease
#Diarrhea
resolving
C.diff neg
follow stool Cx
#Liver cirrhosis with ascites
ferritin 198 - WNL
Sent ceruloplasmin, IGG4, MIKE, AMA, Anti-Smooth muscle Ab, lead level and follow with GI
Acute Hepatitis neg, patient immunized to HepB
Advised absolute alcohol abstinence, avoid Tylenol
Eventual EGD for variceal screening, recommend colonoscopy due to stool consistency change - as outpatient as per GI
Lactulose PRN to ensure daily BM
Abdominal US with Doppler to r/o HCC and PVT as per GI
Started diuretics - will need BMP in 1 week
#Pancytopenia
Thiamine, folate WNL
Hematology consult: suspect cytopenias due to splenic sequestration. no need for bone marrow biopsy at this time
follow CBC -repeat also in 1 week upon d/c
TSH WNL
#GERD
#Essential HTN
#HLD
#CAD stable
#BPH
cont home meds
DVT ppx SCDs
Full code
I have spent at least 51min reviewing chart, test results, communication with consultants and providing direct patient care
Anticipated Discharge: 24 - 48 hours
Subjective/Interval History
-
Date of Service: December 14, 2024
Objective Data
-
Labs:
Laboratory Results
12/14/24 12/14/24 12/14/24
05:59 05:59 05:59
WBC 3.4 L
Hgb 10.8 L
Hct 32.3 L
Plt Count 118 L
Sodium Pending Cancelled
Potassium Pending Cancelled
Chloride Pending
Carbon Dioxide
BUN
Creatinine
Glucose
Calcium
Total Bilirubin
AST
ALT
Alkaline Phosphatase
12/14/24 12/14/24 12/14/24
05:59 05:59 05:59
WBC
Hgb
Hct
Plt Count
Sodium
Potassium
Chloride Cancelled
Carbon Dioxide Pending Cancelled
BUN Pending Cancelled
Creatinine Pending
Glucose
Calcium
Total Bilirubin
AST
ALT
Alkaline Phosphatase
12/14/24 12/14/24 12/14/24
05:59 05:59 05:59
WBC
Hgb
Hct
Plt Count
Sodium
Potassium
Chloride
Carbon Dioxide
BUN
Creatinine Cancelled
Glucose Pending Cancelled
Calcium Pending Cancelled
Total Bilirubin Pending
AST
ALT
Alkaline Phosphatase
12/14/24 12/14/24 12/14/24
05:59 05:59 05:59
WBC
Hgb
Hct
Plt Count
Sodium
Potassium
Chloride
Carbon Dioxide
BUN
Creatinine
Glucose
Calcium
Total Bilirubin Cancelled
AST Pending Cancelled
ALT Pending Cancelled
Alkaline Phosphatase Pending
12/14/24
05:59
WBC
Hgb
Hct
Plt Count
Sodium
Potassium
Chloride
Carbon Dioxide
BUN
Creatinine
Glucose
Calcium
Total Bilirubin
AST
ALT
Alkaline Phosphatase Cancelled
Vital Signs:
Vital Signs
Temp Pulse Resp BP Pulse Ox
98.3 F 61 16 130/81 94
12/14/24 07:30 12/14/24 07:30 12/14/24 07:30 12/14/24 07:30 12/14/24 07:30
I&O
12/13/24 12/14/24 12/15/24
06:59 06:59 06:59
Intake Total 480 / 480
Balance 480 / 480
Review of Systems
-
History Source: Patient
All other systems: Reviewed and negative
Physical Exam
-
General: No Apparent Distress
HEENT: Normocephalic
Respiratory: Clear to Auscultation
GI: Soft, Nontender and Distended
Skin: Warm
Neuro: Awake, Alert, Oriented and AO x 3
Psych: Calm
[2024-12-14 12:14] LABS: ALT (SGPT) 22 U/L (0-50); AST (SGOT) 46 U/L (17-59); Albumin 3.0 g/dl (3.5-5.0); Alkaline Phosphatase 108 U/L (38-126); Blood Urea Nitrogen 18 mg/dl (9-20); Calcium 8.9 mg/dl (8.4-10.2); Carbon Dioxide 23 mmol/L (22-30); Chloride 110 mmol/L (98-107); Estimated Creatinine Clearance 75 ml/min; Glucose 96 mg/dl (70-99); Potassium 4.1 mmol/L (3.5-5.1); Sodium 137 mmol/L (135-145); Total Protein 6.7 g/dl (6.3-8.2); eGFR > 60.00
[2024-12-14] MEDS: LASIX 20 MG PO (12:23)
[2024-12-14] MEDS: ALDACTONE 50 MG PO (12:23)
[2024-12-14] MEDS: TRICOR 145 MG PO (12:23)
[2024-12-14 15:00] VITALS: BP 113/63
--- NOTE | 2024-12-14 15:41 | PTCARENOTE ---
Patient had two bowel movements with a small amount of dark red blood, heme +. Physicians made aware. No new orders, observe for now.
[2024-12-14] MEDS: LIPITOR 20 MG PO (20:44)
[2024-12-14 23:05] VITALS: BP 125/77
[2024-12-15 06:00] VITALS: BMI 27.0
--- NOTE | 2024-12-15 06:05 | W.PN.GI.CBS2 ---
Today's Communication / Plan
-
Small amount of prior rectal bleeding likely secondary to hemorrhoids. However, given previous abnormal CT imaging and rectal bleeding will pursue Colonoscopy as well as EGD while inpatient later this week on Monday, 12/17. Additionally, elevated
ASMA but can be seen in setting of alcohol, will await rest of AIH testing. See rest of care as outlined below.
Assessment / Plan
-
#Decompensated Cirrhosis (likely 2/2 EtOH)
#Positive, Elevated ASMA
#High SAAG, low protein Ascites
#Colonic Wall Thickening c/f #Portal Colopathy
#Previous Non-bloody, Watery Diarrhea- Resolved
#Pancytopenia #Macrocytic Anemia
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
Mr. Rajan is a 79 y.o male with a past medical history of HTN, HLD, GERD, anxiety/depression and recent travel to [facility] who presented to the ED with acute, non-bloody, watery diarrhea over the past 2-3 weeks and found to have CT imaging
demonstrating hepatic cirrhosis and ascites for which GI has been consulted. Patient denies any known liver disease or prior history of cirrhosis in the past. Denies any family history of liver disease. He does note significant EtOH use in the past
several years ago, primarily drank 1-2 glasses of wine on a daily basis and continues to drink EtOH about 4-5 drinks per week. Found to have labs demonstrating synthetic dysfunction along with pancytopenia and thrombocytopenia. MELD labs
corresponding to a MELD 10. CT imaging demonstrating hepatic cirrhosis and splenomegaly suggesting portal HTN along with moderate abdominopelvic ascites along with portal colopathy (versus acute uncomplicated colitis). Otherwise, no other acute
process. S/p IR-guided paracentesis on 12/13 with (-) 1.3 L removed and (-) for SBP (27 PMNs) along with High SAAG > 1.1, low protein further consistent with portal HTN secondary to cirrhosis. For now, would still obtain infectious stool studies with
stool culture, stool ova and parasites along with C Diff. Doubt his diarrhea related to portal colopathy as often found incidentally on imaging and often an asymptomatic finding as related to passive-congestion. Would send full serologic w/u to r/o
chronic liver disease as well but seems most consistent with underlying EtOH. Would benefit from an eventual EGD and colonoscopy as well but would consider deferring to outpatient setting.
- S/p IR-guided paracentesis on 12/13 with (-) 1.3 L removed and (-) for SBP (27 PMNs) along with High SAAG > 1.1, low protein further consistent with portal HTN
- Stool studies: (-) C Diff, (-) Cryptosporidium/Giardia, stool culture (-) and peritoneal fluid culture NGTD
Recommendations:
- Diet as tolerated, will start CLD tomorrow AM
- Trend daily MELD labs- CMP, INR and CBC
- Hepatitis serologies (-), (+) HBsAb c/w immunity to HBV ; serologic liver w/u sent and pending
- Serologic w/u notable for elevated (+) ASMA concerning for potential AIH however can be seen in alcohol use, would still await rest of AIH testing
- Continue low dose diuretics with lasix 20 mg and spironolactone 50 mg once daily for his ascites
- Await peritoneal culture and cytology, previously (-) SBP as well as stool culture
- Ordered Abdominal US along with Dopplers to ensure no PVT given his ascites although CT with grossly patent vasculature, yet to be performed
- Concern for small amount of rectal bleeding noted on 12/14, brown stool on exam and likely from hemorrhoids
- However, given previous change in bowel habits, abnormal CT imaging and concern for rectal bleeding will pursue Colonoscopy as well as an EGD for EV screening
- Plan for tentative EGD and Colonoscopy on 12/17/24, for further evaluation
- Anemia w/u without evidence of NEVIN with normal ferritin 198 and iron sat 23%
- No evidence of HE, would continue to monitor off lactulose or rifaximin
- Will need ongoing HCC surveillance with US every 6 months, will obtain AFP
- Hematology consulted, appreciate recs regarding his pancytopenia
- Advised strict EtOH cessation as outpatient
- Ultimately, discussed close follow-up with both GI along with Hepatology as well for outpatient. Will have patient f/u with Dr. Gibbs
- Rest of care as per primary team
GI will continue to follow. Discussed with primary internal medicine team. Please call with any questions or concerns.
Subjective
Subjective
Date of Service: December 15, 2024
- Stool cultures (-), peritoneal fluid culture NGTD x 24 hrs
- Reported having brown, soft formed stools
- Abdominal US w/ Dopplers pending, started on diuretics given ascites
- Otherwise, no acute events overnight
Feeling well and resting comfortably. Having brown stools although had small amount of bright red blood with wiping yesterday. Continues to deny abdominal pain or discomfort. Performed rectal exam/CONSTANTINE this AM with brown stool on exam without any
blood with non-thrombosed external hemorrhoids.
Objective
Data Reviewed
Laboratory Data:
Laboratory Results
PT 16.7 Sec (11.4-14.6) H 12/13/24 08:47
INR 1.32 12/13/24 08:47
Total Bilirubin 1.4 mg/dl (0.2-1.3) H 12/14/24 05:59
Total Bilirubin Cancelled 12/14/24 05:59
AST 46 U/L (17-59) 12/14/24 05:59
AST Cancelled 12/14/24 05:59
ALT 22 U/L (0-50) 12/14/24 05:59
ALT Cancelled 12/14/24 05:59
Alkaline Phosphatase 108 U/L (38-126) 12/14/24 05:59
Alkaline Phosphatase Cancelled 12/14/24 05:59
Lipase 222 U/L (23-300) 12/12/24 16:35
Vital Signs and I&O:
Vital Signs
Temp Pulse Resp BP Pulse Ox
98.5 F 66 16 125/77 100
12/14/24 23:05 12/14/24 23:05 12/14/24 23:05 12/14/24 23:05 12/14/24 23:05
I&O
12/13/24 12/14/24 12/15/24
06:59 06:59 06:59
Intake Total 480 / 480 720 / 720
Balance 480 / 480 720 / 720
Physical Exam
Physical Exam
HEENT: Anicteric and Moist mucous membranes
Cardiology: Normal Sinus Rhythm
Pulmonary: Other (Normal WOB on room air)
GI: Soft, Non Distended and Non Tender
Extremities: No Edema
Neuro: Non Focal
[2024-12-15 07:15] VITALS: BP 121/67
[2024-12-15 07:15] LABS: ALT (SGPT) 25 U/L (0-50); AST (SGOT) 53 U/L (17-59); Albumin 3.3 g/dl (3.5-5.0); Alkaline Phosphatase 102 U/L (38-126); Blood Urea Nitrogen 17 mg/dl (9-20); Calcium 8.9 mg/dl (8.4-10.2); Carbon Dioxide 26 mmol/L (22-30); Chloride 108 mmol/L (98-107); Estimated Creatinine Clearance 60 ml/min; Glucose 95 mg/dl (70-99); Magnesium 2.0 mg/dl (1.6-2.3); Potassium 4.5 mmol/L (3.5-5.1); Sodium 140 mmol/L (135-145); Total Protein 7.2 g/dl (6.3-8.2); eGFR > 60.00
[2024-12-15 07:33] LABS: LDH 327 U/L (120-246)
[2024-12-15 07:43] LABS: Hematocrit 34.1 % (39.0-52.0); Hemoglobin 11.2 g/dL (13.0-18.0); Mean Corp Hgb Conc. 32.8 g/dL (33.0-37.0); Mean Corpuscular Volume 102.7 fL (80.0-94.0); Platelet Count 130 10^3/uL (130-400); Red Cell Dist. Width 16.1 % (11.5-14.5)
[2024-12-15 08:35] LABS: Reticulocyte Count 5.0 % (0.4-2.8)
[2024-12-15 08:41] LABS: Nucleated Red Blood Cells % 0 % (-)
[2024-12-15] MEDS: LASIX 20 MG PO (11:12)
[2024-12-15] MEDS: ALDACTONE 50 MG PO (11:12)
[2024-12-15] MEDS: NORVASC 5 MG PO (11:12)
[2024-12-15] MEDS: PROTONIX 40 MG PO (11:12)
[2024-12-15] MEDS: ASPIR LOW (ENTERIC COATED) 81 MG PO (11:12)
[2024-12-15] MEDS: LEXAPRO 20 MG PO (11:12)
[2024-12-15] MEDS: PROSCAR 5 MG PO (11:12)
[2024-12-15] MEDS: TRICOR 145 MG PO (11:12)
--- NOTE | 2024-12-15 11:30 | PTCARENOTE ---
Plan of care discussed with patient and his family. Patient is for US today and colonoscopy on Monday. Patient and family verbalized understanding. Patient has no c/o pain, tolerating diet, ambulating in room with a steady gait.
--- NOTE | 2024-12-15 11:36 | CM ---
Patient seen at bedside
per GI note: Colonoscopy as well as EGD while inpatient later this week on Monday, 12/17
PLAN: home, no needs anticipated, CM to continue to follow
--- NOTE | 2024-12-15 12:11 | W.PN.HOSP.TC ---
Today's Communication/Plan
-
watch labs on new diuretics
EGD/Colonoscopy in AM
Assessment / Plan
Assessment / Plan
79yo M with PMHX of HLD, BPH, HTN, CAD, GERD came with concerns for weakness and appetite loss over past 3 weeks after his return from [facility] with abdominal distension. Found new moderate ascites s/p paracentesis on 12/13/24 with 1300ml of transudate
with low protein content - most likely 2/2 portal HTN due to liver disease. CT showed cirrhotic liver morphology with portal HTN resulting in splenomegaly and portal colopathy. Did not meet criteria for SBP. Also developed loose multiple stools over
past 3 weeks. Patient previously used to have wine nightly, but denies abuse. Pending final stool Cx. Will need f/u with windshield technician Dr. Gibbs. BMP and CBC in 1 week upon d/c as pancytopenia and new diuretics on discharge. Manager Cancer:
cytopenia 2/2 splenic sequestration
A/P:
#Malaise, weakness
Most likely 2/2 systemic disease
#Diarrhea with hematochezia
resolving
C.diff neg
Shigell, salmonella and campilobacter neg
EHEC pending
#Liver cirrhosis with , suspected alcoholic ascites cannot exclude autoimmune hepatitis
ferritin 198 - WNL
ceruloplasmin minimally elevated
pending IGG4, MIKE, AMA, lead level
Anti-Smooth muscle Ab positive - discussed with GI - outpatient Lead Nitrate Processor advised, currently not planning for liver biopsy
Acute viral Hepatitis neg, patient immunized to HepB
Advised absolute alcohol abstinence, avoid Tylenol
Eventual EGD for variceal screening, recommend colonoscopy due to stool consistency change - as outpatient as per GI
Lactulose PRN to ensure daily BM
Abdominal US with Doppler to r/o HCC and PVT as per GI
Started diuretics - will need BMP in 1 week
#Pancytopenia
#Acute blood loss anemia
#Indirect bilirubinemia
EGD and colonoscopy as per GI on 12/17/24 due to reported gross hematochezia
Thiamine, folate WNL
Hematology consult: suspect cytopenias due to splenic sequestration. no need for bone marrow biopsy at this time
follow CBC - repeat also in 1 week upon d/c
TSH WNL
Mildly elevated LDH but Croombs neg, so likely 2/2 liver disease without overt signs of hemolisis
#GERD
#Essential HTN
#HLD
#CAD stable
#BPH
cont home meds
DVT ppx SCDs
Full code
I have spent at least 56min reviewing chart, test results, communication with consultants and family bedside and providing direct patient care
Anticipated Discharge: > 48 hours
Subjective/Interval History
-
Date of Service: December 15, 2024
Objective Data
-
Labs:
Laboratory Results
12/15/24
06:22
WBC 3.8 L
Hgb 11.2 L
Hct 34.1 L
Plt Count 130
Sodium 140
Potassium 4.5
Chloride 108 H
Carbon Dioxide 26
BUN 17
Creatinine 1.0
Glucose 95
Calcium 8.9
Total Bilirubin 1.9 H
AST 53
ALT 25
Alkaline Phosphatase 102
Vital Signs:
Vital Signs
Temp Pulse Resp BP Pulse Ox
98.0 F 64 17 121/67 94
12/15/24 07:15 12/15/24 07:15 12/15/24 07:15 12/15/24 07:15 12/15/24 07:15
I&O
12/14/24 12/15/24 12/16/24
06:59 06:59 06:59
Intake Total 480 / 480 1200 / 1200
Balance 480 / 480 1200 / 1200
Review of Systems
-
History Source: Patient
All other systems: Reviewed and negative
Physical Exam
-
General: No Apparent Distress
HEENT: Normocephalic
Respiratory: Clear to Auscultation
GI: Soft, Nontender and Distended
Musculoskeletal: No Clubbing, No Cyanosis and No Edema
Neuro: Awake, Alert, Oriented and AO x 3
Psych: Calm
[2024-12-15 15:00] VITALS: BP 133/73
[2024-12-15] MEDS: LIPITOR 20 MG PO (21:00)
[2024-12-15 23:01] VITALS: BP 111/67
[2024-12-15 23:47] LABS: Lead - Venous <2.0 ug/dL (<=3.4)
--- NOTE | 2024-12-16 05:33 | PTCARENOTE ---
Pt ambulating to bathroom intermittently t/o the night. Pt reports moving bowels but not as loose as before. Denies any blood at this time. No issues to report. Vital signs stable. Call guidry in reach. Will continue to monitor.
--- NOTE | 2024-12-16 05:51 | W.PN.GI.CBS2 ---
Today's Communication / Plan
-
No appreciable ascites to tap per IR this AM. Continue CLD and start bowel prep this afternoon. Plan for EGD/Colon tomorrow, 12/17/24. Needs close f/u with Hepatology after discharge. See rest of care as outlined below.
Assessment / Plan
-
#Decompensated Cirrhosis (likely 2/2 EtOH)
#Positive, Elevated ASMA
#High SAAG, low protein Ascites
#Colonic Wall Thickening c/f #Portal Colopathy
#Previous Non-bloody, Watery Diarrhea- Resolved
#Pancytopenia #Macrocytic Anemia
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
Mr. Rajan is a 79 y.o male with a past medical history of HTN, HLD, GERD, anxiety/depression and recent travel to [facility] who presented to the ED with acute, non-bloody, watery diarrhea over the past 2-3 weeks and found to have CT imaging
demonstrating hepatic cirrhosis and ascites for which GI has been consulted. Patient denies any known liver disease or prior history of cirrhosis in the past. Denies any family history of liver disease. He does note significant EtOH use in the past
several years ago, primarily drank 1-2 glasses of wine on a daily basis and continues to drink EtOH about 4-5 drinks per week. Found to have labs demonstrating synthetic dysfunction along with pancytopenia and thrombocytopenia. MELD labs
corresponding to a MELD 10. CT imaging demonstrating hepatic cirrhosis and splenomegaly suggesting portal HTN along with moderate abdominopelvic ascites along with portal colopathy (versus acute uncomplicated colitis). Otherwise, no other acute
process. S/p IR-guided paracentesis on 12/13 with (-) 1.3 L removed and (-) for SBP (27 PMNs) along with High SAAG > 1.1, low protein further consistent with portal HTN secondary to cirrhosis. For now, would still obtain infectious stool studies with
stool culture, stool ova and parasites along with C Diff. Doubt his diarrhea related to portal colopathy as often found incidentally on imaging and often an asymptomatic finding as related to passive-congestion. Would send full serologic w/u to r/o
chronic liver disease as well but seems most consistent with underlying EtOH. Would benefit from an eventual EGD and colonoscopy as well but would consider deferring to outpatient setting.
- S/p IR-guided paracentesis on 12/13 with (-) 1.3 L removed and (-) for SBP (27 PMNs) along with High SAAG > 1.1, low protein further consistent with portal HTN.
- US Abdomen w/ Dopplers 12/15/2024- Impression: Main PV and HVs with patent vasculature, cirrhotic appearing liver without focal hepatic mass, splenomegaly, moderate amount of ascites
- Stool studies: (-) C Diff, (-) Cryptosporidium/Giardia, stool culture (-) and peritoneal fluid culture NGTD x 48 hrs
Recommendations:
- Continue CLD, keep NPO at MN
- Trend daily MELD labs- CMP, INR and CBC
- Hepatitis serologies (-), (+) HBsAb c/w immunity to HBV ; serologic liver w/u sent and pending
- Serologic w/u notable for elevated (+) ASMA concerning for potential AIH however can be seen in alcohol use, would still await rest of AIH testing- pending
- Continue low dose diuretics with lasix 20 mg and spironolactone 50 mg once daily for his ascites, prior US/Dopplers (-) PVT
- Concern for small amount of rectal bleeding noted on 12/14, brown stool on exam and likely from hemorrhoids
- However, given previous change in bowel habits, abnormal CT imaging and concern for rectal bleeding will pursue Colonoscopy as well as an EGD for EV screening
- Plan for EGD and Colonoscopy tomorrow, 12/17/24, for further evaluation. Start bowel prep this afternoon
- Anemia w/u without evidence of NEVIN with normal ferritin 198 and iron sat 23%
- No evidence of HE, would continue to monitor off lactulose or rifaximin
- HCC Screening: Will need ongoing HCC surveillance with US every 6 months. No suspicious lesions on recent US, AFP pending
- Advised strict EtOH cessation as outpatient
- Ultimately, discussed close follow-up wit Hepatology as well for outpatient. Will have patient f/u with Dr. Gibbs after discharge
- Rest of care as per primary team
GI will continue to follow. Please call with any questions or concerns.
Subjective
Subjective
Date of Service: December 16, 2024
- US Abdomen w/ Dopplers 12/15/2024- Impression: Main PV and HVs with patent vasculature, cirrhotic appearing liver without focal hepatic mass, splenomegaly, moderate amount of ascites
- Pending AM labs along with additional H labs
- Otherwise, no acute events overnight
Resting comfortably this AM, continues to deny any abdominal pain. Still distended but no appreciable ascites to tap in discussion with IR. Denies any further diarrhea or rectal bleeding.
Objective
Data Reviewed
Laboratory Data:
Laboratory Results
PT 16.7 Sec (11.4-14.6) H 12/13/24 08:47
INR 1.32 12/13/24 08:47
Magnesium 2.0 mg/dl (1.6-2.3) 12/15/24 06:22
Total Bilirubin 1.9 mg/dl (0.2-1.3) H 12/15/24 06:22
AST 53 U/L (17-59) 12/15/24 06:22
ALT 25 U/L (0-50) 12/15/24 06:22
Alkaline Phosphatase 102 U/L (38-126) 12/15/24 06:22
Lipase 222 U/L (23-300) 12/12/24 16:35
Vital Signs and I&O:
Vital Signs
Temp Pulse Resp BP Pulse Ox
98.6 F 68 14 111/67 94
12/15/24 23:01 12/15/24 23:01 12/15/24 23:01 12/15/24 23:01 12/15/24 23:01
I&O
12/14/24 12/15/24 12/16/24
06:59 06:59 06:59
Intake Total 480 / 480 1200 / 1200 690 / 690
Balance 480 / 480 1200 / 1200 690 / 690
Physical Exam
Physical Exam
HEENT: Anicteric and Moist mucous membranes
Pulmonary: Other (Normal WOB on room air)
GI: Soft, Distended, Non Tender and Other
Extremities: Warm
Neuro: Non Focal
[2024-12-16 06:00] VITALS: BMI 27.0
[2024-12-16 06:24] LABS: Hematocrit 30.7 % (39.0-52.0); Hemoglobin 10.5 g/dL (13.0-18.0); Mean Corp Hgb Conc. 34.2 g/dL (33.0-37.0); Mean Corpuscular Volume 100.3 fL (80.0-94.0); Platelet Count 120 10^3/uL (130-400); Red Cell Dist. Width 16.1 % (11.5-14.5)
[2024-12-16 06:46] LABS: ALT (SGPT) 21 U/L (0-50); AST (SGOT) 47 U/L (17-59); Albumin 3.0 g/dl (3.5-5.0); Alkaline Phosphatase 102 U/L (38-126); Blood Urea Nitrogen 20 mg/dl (9-20); Calcium 8.7 mg/dl (8.4-10.2); Carbon Dioxide 23 mmol/L (22-30); Chloride 110 mmol/L (98-107); Estimated Creatinine Clearance 67 ml/min; Glucose 97 mg/dl (70-99); Magnesium 1.9 mg/dl (1.6-2.3); Potassium 4.2 mmol/L (3.5-5.1); Sodium 138 mmol/L (135-145); Total Protein 6.6 g/dl (6.3-8.2); eGFR > 60.00
[2024-12-16 07:14] VITALS: BP 142/82
--- NOTE | 2024-12-16 07:15 | W.PN.UPDATE ---
Update Note
Progress Note Update
I reviewed with IR despite 12/15 US with moderate ascites-- not enough fluid to tap per IR review of imaging
[2024-12-16 07:16] LABS: Absolute Neutrophils -Man Diff 1.9 10^3/uL (1.4-6.5); Normal RBC Morphology Yes; Platelets Checked Yes; Total Cells Counted 100
[2024-12-16] MEDS: NORVASC 5 MG PO (08:15)
[2024-12-16] MEDS: PROTONIX 40 MG PO (08:15)
[2024-12-16] MEDS: LASIX 20 MG PO (08:15)
[2024-12-16] MEDS: LEXAPRO 20 MG PO (08:15)
[2024-12-16] MEDS: ALDACTONE 50 MG PO (08:15)
[2024-12-16] MEDS: TRICOR 145 MG PO (08:15)
[2024-12-16] MEDS: PROSCAR 5 MG PO (08:15)
[2024-12-16] MEDS: ASPIR LOW (ENTERIC COATED) 81 MG PO (08:15)
[2024-12-16 08:34] LABS: ANA, IgG Reflex to HEp-2 Detected (None Detected)
--- NOTE | 2024-12-16 08:37 | W.PN.HOSP.TC ---
Today's Communication/Plan
-
Plan EGD and colonoscopy in a.m.
Assessment / Plan
Assessment / Plan
Physical exam:
General: No Apparent Distress
HEENT: Normocephalic, Atraumatic and Moist Mucous Membranes
Respiratory: Clear to Auscultation; Negative Wheezes, Rales or Rhonchi
Cardiac: Regular Rhythm and S1/S2
GI: Soft, Nontender and mild distended
Musculoskeletal: No Clubbing, No Cyanosis and No Edema
Neuro: Awake, Alert and Oriented, no neurological deficit
Psych: Calm
A/P:
Decompensated cirrhosis:
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
Continue furosemide 20 mg p.o. daily and spironolactone 50 mg p.o. daily
GI on board and will need referral as outpatient (apparently balance wheel arm burnisher Dr. Gibbs)
IR felt there was not enough fluid to be tapped
Strict alcohol cessation
Discussed with family at bedside today
Rectal bleeding and abnormal CT and acute blood loss anemia:
Plan for EGD/colonoscopy tomorrow
On aspirin-will place on hold temporarily
Pancytopenia:
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
Hypertension:
Continue amlodipine 5 mg p.o. daily
Hyperlipidemia:
Continue atorvastatin 20 mg p.o. nightly
Continue fenofibrate 145 mg p.o. daily
BPH:
Continue Proscar 5 mg p.o. daily
DVT prophylaxis:
SCDs
CODE STATUS:
Full code
Time spent 36 minutes
Anticipated Discharge: 24 - 48 hours
Subjective/Interval History
-
Date of Service: December 16, 2024
Patient feels well today. No abdominal pain nausea or vomiting. No melena or hematemesis.
Objective Data
-
Labs:
Laboratory Results
12/16/24 12/16/24 12/16/24
05:55 05:56 08:32
WBC 3.4 L
Hgb 10.5 L
Hct 30.7 L
Plt Count 120 L
PT Pending
INR Pending
Sodium 138
Potassium 4.2
Chloride 110 H
Carbon Dioxide 23
BUN 20
Creatinine 0.9
Glucose 97
Calcium 8.7
Total Bilirubin 1.5 H
AST 47
ALT 21
Alkaline Phosphatase 102
Vital Signs:
Vital Signs
Temp Pulse Resp BP Pulse Ox
97.6 F 58 17 142/82 97
12/16/24 07:14 12/16/24 07:14 12/16/24 07:14 12/16/24 07:14 12/16/24 07:14
I&O
12/15/24 12/16/24 12/17/24
06:59 06:59 06:59
Intake Total 1200 / 1200 1170 / 1170
Balance 1200 / 1200 1170 / 1170
[2024-12-16 09:24] LABS: INR 1.24; PT 16.2 Sec (11.4-14.6)
[2024-12-16 14:58] VITALS: BP 140/77
--- NOTE | 2024-12-16 15:20 | CM ---
Patient has been transitioned to inpatient status. IMM explained and signed by patient. EGD and colonoscopy tomorrow 12/17/24. Discharge POC: Anticipate no needs.
[2024-12-16] MEDS: NULYTELY SOLUTION 4 LITERS PO (16:08)
[2024-12-16 18:46] LABS: AFP Male/Tumor Marker 2.54 ng/ml
[2024-12-16] MEDS: LIPITOR 20 MG PO (20:49)
[2024-12-16 23:22] VITALS: BP 145/76
[2024-12-17] VITALS (8 sets, daily range): BP systolic 112–160; BP diastolic 64–94; BMI 27.0
[2024-12-17 06:48] LABS: INR 1.31; PT 16.8 Sec (11.4-14.6)
[2024-12-17 06:49] LABS: Hematocrit 31.6 % (39.0-52.0); Hemoglobin 10.6 g/dL (13.0-18.0); Mean Corp Hgb Conc. 33.5 g/dL (33.0-37.0); Mean Corpuscular Volume 100.3 fL (80.0-94.0); Platelet Count 127 10^3/uL (130-400); Red Cell Dist. Width 16.3 % (11.5-14.5)
[2024-12-17 06:53] LABS: ALT (SGPT) 22 U/L (0-50); AST (SGOT) 47 U/L (17-59); Albumin 3.1 g/dl (3.5-5.0); Alkaline Phosphatase 90 U/L (38-126); Blood Urea Nitrogen 19 mg/dl (9-20); Calcium 8.5 mg/dl (8.4-10.2); Carbon Dioxide 24 mmol/L (22-30); Chloride 109 mmol/L (98-107); Estimated Creatinine Clearance 54 ml/min; Glucose 94 mg/dl (70-99); Magnesium 1.7 mg/dl (1.6-2.3); Potassium 4.3 mmol/L (3.5-5.1); Sodium 137 mmol/L (135-145); Total Protein 6.5 g/dl (6.3-8.2); eGFR > 60.00
--- NOTE | 2024-12-17 11:24 | W.PN.HOSP.TC ---
Today's Communication/Plan
-
EGD/colo
Assessment / Plan
Assessment / Plan
Physical exam:
General: No Apparent Distress
HEENT: Normocephalic, Atraumatic and Moist Mucous Membranes
Respiratory: Clear to Auscultation; Negative Wheezes, Rales or Rhonchi
Cardiac: Regular Rhythm and S1/S2
GI: Soft, Nontender and mild distended
Musculoskeletal: No Clubbing, No Cyanosis and No Edema
Neuro: Awake, Alert and Oriented, no neurological deficit
Psych: Calm
EGD:
- Normal proximal esophagus.
- Grade II esophageal varices with no bleeding and no stigmata of
recent bleeding. Completely eradicated. Banded.
- Z-line regular, 40 cm from the incisors.
- Diffuse, moderate portal hypertensive gastropathy. Biopsied to
rule out H pylori.
- Normal examined duodenum up to the third portion.
- The examination was otherwise normal without any gastric varices
or duodenal varices.
Recommendation:
- Await pathology results.
- Repeat EGD in 2-4 weeks for repeat banding and eradication of
esophageal varices
- Start PPI 40 mg BiD for two weeks for post-banding ulcer
prevention
- Strict cessation of all alcohol, avoidance of NSAIDs
- Proceed with colonoscopy today for further evaluation of abnormal
CT imaging and previous rectal bleeding
Colonoscopy:
- Preparation of the colon was fair.
- Large, non-thrombosed external and internal hemorrhoids found on
perianal exam and during retroflexion. Source of rectal bleeding.
- Copious amount of thickly adherent stool throughout the entire
examined colon, ultimately fair prep.
- The examined portion of the ileum was normal.
- A single colonic angiodysplastic lesion. Treated with argon
plasma coagulation (APC) given anemia and prevention of bleeding.
- Diverticulosis in the entire examined colon.
- One 3 mm polyp in the proximal rectum, removed with a cold biopsy
forceps. Resected and retrieved.
- Non-bleeding internal hemorrhoids.
- The examination was otherwise normal on direct and retroflexion
views without any endoscopic signs of inflammation or masses.
However, the prep was suboptimal and ultimately fair prep despite
extensive washing.
Recommendation:
- Return patient to hospital frey for ongoing care
- Restart low-sodium restricted diet as tolerated
- Await path results from both EGD and Colonoscopy
- Will need a repeat colonoscopy in 3 to 6 months given
fair/suboptimal prep
- Recommend cessation of all alcohol, avoidance of NSAIDs
- Recommend follow-up with colorectal surgery as outpatient for
treatment of hemorrhoids
- Observe clinical course
- Discussed findings and recommendations with patient and primary
internal medicine team
A/P:
Decompensated cirrhosis:
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
Continue furosemide 20 mg p.o. daily and spironolactone 50 mg p.o. daily
GI on board and will need referral as outpatient (apparently patent agent Dr. Gibbs)
IR felt there was not enough fluid to be tapped
Strict alcohol cessation
Discussed with family at bedside today
Discussed with GI as well today
Rectal bleeding and abnormal CT and acute blood loss anemia:
Status post EGD/colonoscopy today
On aspirin-discussed with patient and family and no compelling evidence to continue.
Esophageal varices:
See report
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
See report
Pancytopenia:
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
Hypertension:
Continue amlodipine 5 mg p.o. daily
Hyperlipidemia:
Continue atorvastatin 20 mg p.o. nightly
Continue fenofibrate 145 mg p.o. daily
BPH:
Continue Proscar 5 mg p.o. daily
DVT prophylaxis:
SCDs
CODE STATUS:
Full code
Total time spent on today's encounter was 52 minutes which included time spent in counseling the patient/family regarding diagnosis and treatment plan as listed above, goals of care, and symptom management. Case was discussed with nursing staff,
specialists, and care coordinators/case management. All labs and imaging personally reviewed by me. Remainder the time spent in detailed review of previous records, lab data, imaging, and other medical provider documentation.
Anticipated Discharge: Within 24 hours
Subjective/Interval History
-
Date of Service: December 17, 2024
Patient denies abdominal pain. No chest pain or shortness of breath
Objective Data
-
Labs:
Laboratory Results
12/17/24
06:02
WBC 3.6 L
Hgb 10.6 L
Hct 31.6 L
Plt Count 127 L
PT 16.8 H
INR 1.31
Sodium 137
Potassium 4.3
Chloride 109 H
Carbon Dioxide 24
BUN 19
Creatinine 1.1
Glucose 94
Calcium 8.5
Total Bilirubin 2.0 H
AST 47
ALT 22
Alkaline Phosphatase 90
Vital Signs:
Vital Signs
Temp Pulse Resp BP Pulse Ox
97.5 F 62 12 151/86 95
12/17/24 08:01 12/17/24 08:01 12/17/24 08:01 12/17/24 08:01 12/17/24 08:01
I&O
12/16/24 12/17/24 12/18/24
06:59 06:59 06:59
Intake Total 1170 / 1170 1560 / 1560
Balance 1170 / 1170 1560 / 1560
[2024-12-17] MEDS: NORVASC 5 MG PO (13:02)
[2024-12-17] MEDS: TRICOR 145 MG PO (13:02)
[2024-12-17] MEDS: LASIX 20 MG PO (13:03)
[2024-12-17] MEDS: PROTONIX 40 MG PO (13:03)
[2024-12-17] MEDS: PROSCAR 5 MG PO (13:03)
[2024-12-17] MEDS: LEXAPRO 20 MG PO (13:03)
[2024-12-17] MEDS: ALDACTONE 50 MG PO (13:03)
[2024-12-17] MEDS: CARAFATE SUSPENSION 1 GM PO ×2 (15:00→23:26)
--- NOTE | 2024-12-17 15:04 | CM ---
Patient seen at bedside with
Endoscopy/Colonoscopy today
PLAN: home, no needs anticipated, CM will continue to follow
--- NOTE | 2024-12-17 15:18 | W.PN.UPDATE ---
Update Note
Progress Note Update
long discussion with patient and family about cirrhosis, EGD/colon results and follow up needed. Some complaints of indigestion post EGD with banding. On PPI will give carafate now and sent message to hospitalist and nursing to update if improving
or if any further intervention needed. calling Dr. Gibbs's office now to arrange hepatology follow up. All questions answered.
[2024-12-17] MEDS: NSS (PRESERVATIVE FREE) 10 ML IV ×2 (15:27→20:15)
[2024-12-17] MEDS: PROTONIX IV 40 MG IV ×2 (15:27→20:15)
[2024-12-17] MEDS: LIPITOR 20 MG PO (20:17)
[2024-12-18 02:32] LABS: Mitochondrial M2 Ab, IgG 21.3 Units (0.0-24.9)
--- NOTE | 2024-12-18 05:59 | PTCARENOTE ---
Around 5, pt c/o indigestion. 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 Pt stated this morning that he feels 'a lot better'. Plan of care ongoing.
[2024-12-18 06:00] VITALS: BMI 26.8
--- NOTE | 2024-12-18 06:02 | W.PN.GI.CBS2 ---
Today's Communication / Plan
-
Increase diuretics given stable renal function and based on weight for ascites. Needs repeat EGD in 2-4 weeks for repeat banding for eradication of EV. Okay for discharge today and discussed importance of close outpatient f/u with GI and Hepatology
as an outpatient. See rest of care as outlined below. GI will sign-off, please re-contact with any questions or concerns.
Assessment / Plan
-
#Decompensated Cirrhosis (likely 2/2 EtOH)
#Positive, Elevated ASMA
#High SAAG, low protein Ascites
#Colonic Wall Thickening c/f #Portal Colopathy
#Previous Non-bloody, Watery Diarrhea- Resolved
#Pancytopenia #Macrocytic Anemia
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
Mr. Rajan is a 79 y.o male with a past medical history of HTN, HLD, GERD, anxiety/depression and recent travel to [facility] who presented to the ED with acute, non-bloody, watery diarrhea over the past 2-3 weeks and found to have CT imaging
demonstrating hepatic cirrhosis and ascites for which GI has been consulted. Patient denies any known liver disease or prior history of cirrhosis in the past. Denies any family history of liver disease. He does note significant EtOH use in the past
several years ago, primarily drank 1-2 glasses of wine on a daily basis and continues to drink EtOH about 4-5 drinks per week. Found to have labs demonstrating synthetic dysfunction along with pancytopenia and thrombocytopenia. MELD labs
corresponding to a MELD 10. CT imaging demonstrating hepatic cirrhosis and splenomegaly suggesting portal HTN along with moderate abdominopelvic ascites along with portal colopathy (versus acute uncomplicated colitis). Otherwise, no other acute
process. S/p IR-guided paracentesis on 12/13 with (-) 1.3 L removed and (-) for SBP (27 PMNs) along with High SAAG > 1.1, low protein further consistent with portal HTN secondary to cirrhosis. For now, would still obtain infectious stool studies with
stool culture, stool ova and parasites along with C Diff. Doubt his diarrhea related to portal colopathy as often found incidentally on imaging and often an asymptomatic finding as related to passive-congestion. Would send full serologic w/u to r/o
chronic liver disease as well but seems most consistent with underlying EtOH. Would benefit from an eventual EGD and colonoscopy as well but would consider deferring to outpatient setting.
- S/p IR-guided paracentesis on 12/13 with (-) 1.3 L removed and (-) for SBP (27 PMNs) along with High SAAG > 1.1, low protein further consistent with portal HTN.
- US Abdomen w/ Dopplers 12/15/2024- Impression: Main PV and HVs with patent vasculature, cirrhotic appearing liver without focal hepatic mass, splenomegaly, moderate amount of ascites
- Stool studies: (-) C Diff, (-) Cryptosporidium/Giardia, stool culture (-) and peritoneal fluid culture NGTD x 48 hrs
S/p EGD/Colon 12/17/24: Grade II EV s/p banding (four bands) with eradication, moderate diffuse PHG, normal duodenum, otherwise no GV/duodenal varices; colonoscopy with fair prep with brown stool, normal ileum, single AVM within proximal AC s/p APC,
noel-diverticulosis, one 3 mm polyp in proximal rectum s/p polypectomy, non-thrombosed external/internal hemorrhoids as source of rectal bleeding
Recommendations:
- 2 gm Na+ restricted diet as tolerated
- Trend daily MELD labs- CMP, INR and CBC. Previous MELD 3.0 score of 10s
- Hepatitis serologies (-), (+) HBsAb c/w immunity to HBV ; serologic liver w/u sent and pending
- Serologic w/u notable for elevated (+) Elevated F-Actin Ab and (+) MIKE concerning for potential AIH however (-) ASMA titer can be seen in alcohol use, would still await rest of AIH testing- pending
- Increase diuretics- lasix 40 mg and spironolactone 50 mg once daily for ascites
- Prior w/u for ascites: (-) PVT and SBP
- EV/PHG: Will need a repeat EGD in 2-4 weeks for repeat banding for EV eradication. Continue PPI 40 mg BiD for two weeks for post-banding ulcer prevention
- Rectal bleeding in setting of large ext/internal hemorrhoids. Ultimately, still advised a repeat colonoscopy in 3-6 months given the fair/suboptimal bowel prep
- Anemia w/u without evidence of NEVIN with normal ferritin 198 and iron sat 23%
- No evidence of HE, would continue to monitor off lactulose or rifaximin
- HCC Screening: Will need ongoing HCC surveillance with US every 6 months. No suspicious lesions on recent US, AFP pending
- Ultimately, discussed close follow-up with Hepatology as well for outpatient. Will have patient f/u with Dr. Gibbs after discharge (given c/f positive AI serologies) as well as f/u with our GI office
- Avoidance of all NSAIDs and again discussed strict EtOH cessation as outpatient
- Rest of care as per primary team
Discussed with primary internal medicine team. May be discharged with very close outpatient f/u with both GI and Hepatology. GI will sign-off, please re-contact with any questions or concerns.
Subjective
Subjective
Date of Service: December 18, 2024
- S/p EGD/Colon 12/17/24: Grade II EV s/p banding (four bands) with eradication, moderate diffuse PHG, normal duodenum, otherwise no GV/duodenal varices; colonoscopy with fair prep with brown stool, normal ileum, single AVM within proximal AC s/p
APC, noel-diverticulosis, one 3 mm polyp in proximal rectum s/p polypectomy, non-thrombosed external/internal hemorrhoids as source of rectal bleeding
- Otherwise, no acute events overnight
Feeling well, resting comfortably without any further chest discomfort since his prior banding. No bloody and/or dark stools or other abdominal pain. Discussed importance of close outpatient f/u with our office as well as Hepatology with
Sai.
Objective
Data Reviewed
Laboratory Data:
Laboratory Results
PT 16.8 Sec (11.4-14.6) H 12/17/24 06:02
INR 1.31 12/17/24 06:02
Magnesium 1.7 mg/dl (1.6-2.3) 12/17/24 06:02
Total Bilirubin 2.0 mg/dl (0.2-1.3) H 12/17/24 06:02
AST 47 U/L (17-59) 12/17/24 06:02
ALT 22 U/L (0-50) 12/17/24 06:02
Alkaline Phosphatase 90 U/L (38-126) 12/17/24 06:02
Lipase 222 U/L (23-300) 12/12/24 16:35
Vital Signs and I&O:
Vital Signs
Temp Pulse Resp BP Pulse Ox
98.1 F 88 21 148/88 96
12/17/24 23:14 12/17/24 23:14 12/17/24 23:14 12/17/24 23:16 12/17/24 23:14
I&O
12/16/24 12/17/24 12/18/24
06:59 06:59 06:59
Intake Total 1170 / 1170 1560 / 1560 450 / 450
Balance 1170 / 1170 1560 / 1560 450 / 450
Physical Exam
Physical Exam
HEENT: Anicteric and Moist mucous membranes
Pulmonary: Other (Normal WOB on room air)
GI: Soft, Distended (Protuberant, obese abdomen) and Non Tender
Neuro: Non Focal and Other (No asterixis)
[2024-12-18 06:28] LABS: Hematocrit 30.9 % (39.0-52.0); Hemoglobin 10.4 g/dL (13.0-18.0); Mean Corp Hgb Conc. 33.7 g/dL (33.0-37.0); Mean Corpuscular Volume 99.7 fL (80.0-94.0); Platelet Count 114 10^3/uL (130-400); Red Cell Dist. Width 16.4 % (11.5-14.5)
[2024-12-18 06:37] LABS: INR 1.32; PT 16.9 Sec (11.4-14.6)
[2024-12-18 07:27] LABS: ALT (SGPT) 21 U/L (0-50); AST (SGOT) 46 U/L (17-59); Albumin 3.3 g/dl (3.5-5.0); Alkaline Phosphatase 99 U/L (38-126); Blood Urea Nitrogen 28 mg/dl (9-20); Calcium 8.4 mg/dl (8.4-10.2); Carbon Dioxide 22 mmol/L (22-30); Chloride 109 mmol/L (98-107); Estimated Creatinine Clearance 46 ml/min; Glucose 109 mg/dl (70-99); Potassium 4.4 mmol/L (3.5-5.1); Sodium 137 mmol/L (135-145); Total Protein 6.8 g/dl (6.3-8.2); eGFR 55.88
[2024-12-18 07:42] VITALS: BP 156/93
[2024-12-18] MEDS: ALDACTONE 100 MG PO (08:48)
[2024-12-18] MEDS: LASIX 40 MG PO (08:48)
[2024-12-18] MEDS: LEXAPRO 20 MG PO (08:48)
[2024-12-18] MEDS: NORVASC 5 MG PO (08:48)
[2024-12-18] MEDS: NSS (PRESERVATIVE FREE) 10 ML IV (08:49)
[2024-12-18] MEDS: PROTONIX IV 40 MG IV (08:49)
[2024-12-18] MEDS: PROSCAR 5 MG PO (08:49)
[2024-12-18] MEDS: TRICOR 145 MG PO (09:11)
--- NOTE | 2024-12-18 10:53 | W.PN.HOSP.TC ---
Today's Communication/Plan
-
discharge planning today
Assessment / Plan
Assessment / Plan
Physical exam:
General: No Apparent Distress
HEENT: Normocephalic, Atraumatic and Moist Mucous Membranes
Respiratory: Clear to Auscultation; Negative Wheezes, Rales or Rhonchi
Cardiac: Regular Rhythm and S1/S2
GI: Soft, Nontender and mild distended
Musculoskeletal: No Clubbing, No Cyanosis and No Edema
Neuro: Awake, Alert and Oriented, no neurological deficit
Psych: Calm
EGD:
- Normal proximal esophagus.
- Grade II esophageal varices with no bleeding and no stigmata of
recent bleeding. Completely eradicated. Banded.
- Z-line regular, 40 cm from the incisors.
- Diffuse, moderate portal hypertensive gastropathy. Biopsied to
rule out H pylori.
- Normal examined duodenum up to the third portion.
- The examination was otherwise normal without any gastric varices
or duodenal varices.
Recommendation:
- Await pathology results.
- Repeat EGD in 2-4 weeks for repeat banding and eradication of
esophageal varices
- Start PPI 40 mg BiD for two weeks for post-banding ulcer
prevention
- Strict cessation of all alcohol, avoidance of NSAIDs
- Proceed with colonoscopy today for further evaluation of abnormal
CT imaging and previous rectal bleeding
Colonoscopy:
- Preparation of the colon was fair.
- Large, non-thrombosed external and internal hemorrhoids found on
perianal exam and during retroflexion. Source of rectal bleeding.
- Copious amount of thickly adherent stool throughout the entire
examined colon, ultimately fair prep.
- The examined portion of the ileum was normal.
- A single colonic angiodysplastic lesion. Treated with argon
plasma coagulation (APC) given anemia and prevention of bleeding.
- Diverticulosis in the entire examined colon.
- One 3 mm polyp in the proximal rectum, removed with a cold biopsy
forceps. Resected and retrieved.
- Non-bleeding internal hemorrhoids.
- The examination was otherwise normal on direct and retroflexion
views without any endoscopic signs of inflammation or masses.
However, the prep was suboptimal and ultimately fair prep despite
extensive washing.
Recommendation:
- Return patient to hospital frey for ongoing care
- Restart low-sodium restricted diet as tolerated
- Await path results from both EGD and Colonoscopy
- Will need a repeat colonoscopy in 3 to 6 months given
fair/suboptimal prep
- Recommend cessation of all alcohol, avoidance of NSAIDs
- Recommend follow-up with colorectal surgery as outpatient for
treatment of hemorrhoids
- Observe clinical course
- Discussed findings and recommendations with patient and primary
internal medicine team
A/P:
Decompensated cirrhosis:
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
Continue furosemide 40 mg p.o. daily and spironolactone 100 mg p.o. daily
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
IR felt there was not enough fluid to be tapped
Strict alcohol cessation
Discussed with family at bedside today
Discussed with GI today and he is cleared for discharge today
Rectal bleeding and abnormal CT and acute blood loss anemia:
Status post EGD/colonoscopy yesterday
On aspirin-discussed with patient and family and no compelling evidence to continue.
Esophageal varices:
See report
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
See report
Pancytopenia:
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
Hypertension:
Continue amlodipine 5 mg p.o. daily
d/c mulu inh since starting spironolactone
Hyperlipidemia:
Continue statin p.o. nightly
Continue fenofibrate 145 mg p.o. daily
BPH:
Continue Proscar 5 mg p.o. daily
DVT prophylaxis:
SCDs
CODE STATUS:
Full code
Anticipated Discharge: Today
Subjective/Interval History
-
Date of Service: December 18, 2024
No new complaints
Objective Data
-
Labs:
Laboratory Results
12/18/24
06:17
WBC 7.8
Hgb 10.4 L
Hct 30.9 L
Plt Count 114 L
PT 16.9 H
INR 1.32
Sodium 137
Potassium 4.4
Chloride 109 H
Carbon Dioxide 22
BUN 28 H
Creatinine 1.3
Glucose 109 H
Calcium 8.4
Total Bilirubin 2.3 H
AST 46
ALT 21
Alkaline Phosphatase 99
Vital Signs:
Vital Signs
Temp Pulse Resp BP Pulse Ox
97.9 F 83 15 156/93 95
12/18/24 07:42 12/18/24 08:48 12/18/24 07:42 12/18/24 08:48 12/18/24 09:12
I&O
12/17/24 12/18/24 12/19/24
06:59 06:59 06:59
Intake Total 1560 / 1560 450 / 450
Balance 1560 / 1560 450 / 450
--- NOTE | 2024-12-18 10:58 | W.DCSUMMARY ---
Discharge Summary
Discharge Data
Date of Admission: 12/16/24
Date of Discharge: 12/18/24
Total time spent discharging patient (in min): 32
-
Pending Results: No
Hospital Course
Patient is 79 years old male with history of hypertension, hyperlipidemia, depression, GERD, BPH presented to the hospital with bowel changes and increased abdominal distention. Patient was felt to be in decompensated cirrhosis state. GI was
consulted. Hematology also consulted and they felt that his pancytopenia was related to splenic sequestration most likely and did not require any further workup. Patient underwent EGD on 12/17 and he had grade 2 esophageal varices with no stigmata
of recent bleeding status post banding. He also underwent colonoscopy and it was not well-prepped and showed large external and internal hemorrhoids and single angiodysplastic lesion status post APC and recommended repeat colonoscopy in 3 to 6
months. He was counseled on strict alcohol abstinence/cessation. He also will be referred to conciliation court judge as outpatient. Patient was also treated with PPI and will be continued as outpatient. We will discontinue his JEFRY inhibitor since he is
going to be on spironolactone and he has not been taking it as inpatient and will continue with amlodipine and blood pressure can be reevaluated as outpatient. Patient otherwise hemodynamically stable and hemoglobin has remained stable as well. He
has been on diuretics and tolerated well. GI has cleared him for discharge. He will be discharged in relatively stable condition today.
Discharge duration: 32 minutes
Discharge Plan
-
Patient Disposition: Home (Routine Discharge)
Discharge Diagnosis/Procedures: Decompensated cirrhosis. Rectal bleeding. Esophageal varices. Colon arteriovenous malformations. Internal and external hemorrhoids. Pancytopenia. Alcohol use disorder
Diet: Low Cholesterol and Low Sodium
Additional Diets: health diet with night snack, 3 cups coffee daily
Activity: As tolerated
Blood Work: see slip labs 12/23 or 12/24
Referrals:
Saurav Masters Jr., [Family Provider] - in less than 1 week
Carson Gibbs MD [Non-Admitting Privileges, Internal Medicine]
Referral Note: call to schedule follow up with hepatology. Can request being seen in [place] office.
Lion Hilliard DO [Active, Gastroenterology]
Referral Note: call to arrange repeat EGD in 2-4 weeks and office visit in 6-8 weeks. return to ER for bleeding, increased fluid distention, confusion or any other problems,
Prescriptions:
New
furosemide 40 mg Tablet
40 mg PO DAILY 30 Days Qty: 30 0RF
spironolactone 50 mg Tablet
100 mg PO DAILY 30 Days Qty: 60 0RF
amlodipine 5 mg tablet
5 mg PO DAILY Qty: 30 0RF
pantoprazole [Protonix] 40 mg tablet,delayed release (DR/EC)
40 mg PO DAILY Qty: 60 0RF
Continued
therapeutic multivitamin Tablet
1 tab PO DAILY
simvastatin 40 mg tablet
40 mg PO HS
escitalopram oxalate 20 mg tablet
20 mg PO DAILY
dutasteride 0.5 mg capsule
0.5 mg PO DAILY
fenofibrate 160 mg tablet
160 mg PO DAILY
turmeric 400 mg Capsule
400 mg PO DAILY
Glucosamine Chondroitin 550-30-1 mg Capsule
1 cap PO BID
Discontinued
omeprazole 40 mg capsule,delayed release(DR/EC)
40 mg PO DAILY
aspirin 81 mg Tablet,Delayed Release (Dr/Ec)
81 mg PO DAILY
amlodipine-benazepril 5-40 mg Capsule
1 cap PO DAILY
Discharge Orders:
Discharge Patient (As Directed); Ordered 12/18/24
Ordered By: Chadd Brady
Discharge Date and Time
Print Language: SYRIAC
--- NOTE | 2024-12-18 12:12 | CM ---
Patient seen at bedside.
Discharge today
Interested in VN - options reviewed [facility] preferred
notified liaison - referral to be placed in careport
IMM explained & signed. In chart
PLAN: Home with [facility]
to transport
--- NOTE | 2024-12-18 13:02 | VNURNOTE ---
Home Health Liaison met with patient and spouse Ping at bedside to discuss [facility] nurse/therapy, visits, schedule and homebound status. They are agreeable and understand that visits at home will be 2-3 x per week to assess and teach medical
management. At time of meeting, pt was tired and laying in bed. [place] deb[place], they would leave Monday. Explained that [facility] would be able to see if homebound once back to [place] residence.
[facility] will contact them for start of care in 1-2 days after discharge from . Spouse will know by then if going [place] [facility] [place]. Provided PM [facility] contact #. Patient and spouse appreciative for the info and services.
PM [facility] referral completed in Care Port.
[2024-12-18 16:01] VITALS: BP 132/72
[2024-12-18 23:56] LABS: ANA, HEp-2, IgG Detected (<1:80)
[2024-12-19 02:10] LABS: LKM-1 Ab (IgG) 2.5 U (0.0-24.9)
[2024-12-20 01:27] LABS: Soluble Liver Antigen Ab 4.8 U (0.0-24.9)
[2024-12-20 06:39] LABS: ANA Pattern Speckled; ANA Titer 1:320; Cytoplasmic Pattern Speckled; Cytoplasmic Pattern Titer 1:160
== END 2024-12-18 18:14 | disposition home health service (06) | DRG 378 ==
LOC: 3 WEST ACU 09:29
PROVIDERS: Emergency Medicine; Internal Medicine; Nurse Practitioner Adult Health; Nurse Practitioner Family; Radiology Vascular & Interventional Radiology; ADMITTING PHYSICIAN Hospitalist; ATTENDING PHYSICIAN Hospitalist; CONSULT PHYSICIAN Internal Medicine Hematology & Oncology; CONSULT PHYSICIAN Student in an Organized Health Care Education/Training Program; EMERGENCY PHYSICIAN Emergency Medicine; FAMILY PHYSICIAN Family Medicine
PROC: 0W9G3ZZ Drainage of Peritoneal Cavity, Percutaneous Approach (ICD-10-PCS; 2024-12-13)
PROC: 06L38CZ Occlusion of Esophageal Vein with Extraluminal Device, Via Natural or Artificial Opening Endoscopic (ICD-10-PCS; 2024-12-17)
PROC: 0DBP8ZX Excision of Rectum, Via Natural or Artificial Opening Endoscopic, Diagnostic (ICD-10-PCS; 2024-12-17)
PROC: 0DB68ZX Excision of Stomach, Via Natural or Artificial Opening Endoscopic, Diagnostic (ICD-10-PCS; 2024-12-17)
DX: K62.5 Hemorrhage of anus and rectum (principal); D61.818 Other pancytopenia; K76.6 Portal hypertension; I85.10 Secondary esophageal varices without bleeding; R18.8 Other ascites; K64.8 Other hemorrhoids; K55.21 Angiodysplasia of colon with hemorrhage; K74.60 Unspecified cirrhosis of liver; K64.4 Residual hemorrhoidal skin tags; F10.10 Alcohol abuse, uncomplicated; I10 Essential (primary) hypertension; K21.9 Gastro-esophageal reflux disease without esophagitis; N40.0 Benign prostatic hyperplasia without lower urinary tract symptoms; F32.A Depression, unspecified; F41.9 Anxiety disorder, unspecified; K76.0 Fatty (change of) liver, not elsewhere classified; Z96.653 Presence of artificial knee joint, bilateral; Z80.3 Family history of malignant neoplasm of breast; Z82.49 Family history of ischemic heart disease and other diseases of the circulatory system; Z79.82 Long term (current) use of aspirin; K57.30 Diverticulosis of large intestine without perforation or abscess without bleeding; D53.9 Nutritional anemia, unspecified; E78.00 Pure hypercholesterolemia, unspecified; I86.4 Gastric varices; K59.00 Constipation, unspecified
CPT/HCPCS: 49083; 74177; 76700; 80053; 82042; 82105; 82150; 82248; 82390; 82607; 82728; 82746; 82784; 82787; 83010; 83516; 83540; 83550; 83615; 83655; 83690; 83735; 84157; 84443; 85025; 85027; 85045; 85610; 86015; 86038; 86039; 86256; 86376; 86381; 86705; 86706; 86709; 86803; 86880; 87015; 87045; 87046; 87070; 87205; 87324; 87328; 87329; 87340; 87427; 87449; 88112; 88305; 88342; 89051; 93005; 93975; 99285; Q9967